=== PATIENT | female | born 1955 | race African-American/Black ===

== ENCOUNTER → 2017-02-18 | Outpatient (CLI) | payer MEDICARE ==
[~2017-02-18] MED LIST: ADVAIR 100/501 E1 INH; ANTIVERT/2525 M1 PO; CALTRATE 600 +1 TA1 PO; DICLOFENAC SOD75 MG PO; DITROPAN XL5 MG PO; FLEXERIL5 MG PO; HYDROCHLOROTHIA25 MG PO; HYDROCODONE BIT1 T11 PO; IBU800 MG PO; KCL PO; LIPITOR10 MG PO; LISINOPRIL40 MG PO; MASON NATURAL2000 IU PO; METFORMIN500 MG PO; MULTI VITAMINS1 TAB PO; PHENERGAN W/DM120 ML PO; POTASSIUM CHLO20 ME4 PO; PREDNICOT10 MG PO; PREDNICOT20 MG PO; PREDNISONE50 MG PO; PRILOSEC20 M1 PO; PROAIR HFA8.5 GM INH; ULTRACET 325 MG1 TA1 PO
== END | disposition home or self-care (01) ==
LOC: ORTHO 01:00
DX: M17.11 Unilateral primary osteoarthritis, right knee (principal)

== ENCOUNTER → 2017-12-15 | Outpatient (CLI) | payer MEDICARE ==
[2017-12-15 10:13] LABS: BUN 10 mg/dl (7-24); CHLORIDE 102 mmol/L (98-107); CHOLESTEROL 228 mg/dL (<200); CPK 290 U/L (26-192); CREATININE 1.05 mg/dL (0.55-1.02); HDL CHOLESTEROL 64 mg/dl (40-60); LDL CHOLESTEROL 137 mg/dL (9-159); POTASSIUM 3.6 mmol/L (3.5-5.1); SODIUM 141 mmol/L (136-145); TRIGLYCERIDES 136 mg/dl (<150); VLDL CHOLESTEROL 27 mg/dL (6-40)
[2017-12-16 12:05] LABS: CREATININE,URINE 127.9 mg/dL (Not Estab.); MICRO ALBUMIN/CRE RATIO 51.1 (0.0-30.0)
== END | disposition home or self-care (01) ==
LOC: LAB 09:11
PROVIDERS: Family Medicine
DX: Z12.31 Encounter for screening mammogram for malignant neoplasm of breast (principal); E78.00 Pure hypercholesterolemia, unspecified; E11.9 Type 2 diabetes mellitus without complications

== ENCOUNTER → 2018-01-14 | Outpatient (CLI) | payer MEDICARE | END | disposition home or self-care (01) | LOC: MAMMO 09:52 | DX: Z12.31 Encounter for screening mammogram for malignant neoplasm of breast (principal) ==

== ENCOUNTER → 2018-02-05 | Outpatient (CLI) | payer MEDICARE | END | disposition home or self-care (01) | LOC: ORTHO 00:35 | DX: M17.11 Unilateral primary osteoarthritis, right knee (principal) ==

== ENCOUNTER 2018-04-18 09:59 | Emergency (ER) | payer MEDICARE ==
[~2018-04-18] VITALS: Ht 167.6 cm; Wt 142.9 kg
[2018-04-18 10:32] LABS: BASO % 0.5 % (0.0-1.0); EOS # 0.1 10*3/uL (0.0-0.4); EOS % 1.5 % (1.0-4.0); HEMATOCRIT 40.8 % (37.0-47.0); HEMOGLOBIN 11.6 g/dl (12.0-16.0); LYMPH # 1.8 10*3/uL (1.3-4.4); LYMPH % 30.3 % (27.0-41.0); MEAN CELL VOLUME 79.1 fl (81.0-99.0); MEAN CORPUSCULAR HGB 22.5 pg (27.0-31.0); MEAN CORPUSCULAR HGB CONC 28.4 g/dl (33.0-37.0); MONO # 0.5 10*3/uL (0.1-1.0); MONO % 7.8 % (3.0-9.0); NEUT # 3.5 10*3/uL (2.3-7.9); NEUT % 59.4 % (47.0-73.0); PLATELET COUNT AUTOMATED 227 10*3/uL (130-400); RED BLOOD COUNT 5.16 10*6/uL (4.10-5.10); RED CELL DISTRI WIDTH 16.3 % (0-14.5); WHITE BLOOD COUNT 5.9 10*3/uL (4.8-10.8)
[2018-04-18 10:41] LABS: ACT PARTIAL THROMBO TIME 25.6 SECONDS (20.8-31.5); INTERNATIONAL NORM RATIO 0.9 (2.0-3.5)
[2018-04-18 10:48] LABS: ALBUMIN 2.8 gm/dl (3.1-4.5); ALKALINE PHOSPHATASE 95 U/L (45-117); BUN 4 mg/dl (7-24); CHLORIDE 101 mmol/L (98-107); CREATININE 0.94 mg/dL (0.55-1.02); LIPASE 49 U/L (73-393); POTASSIUM 3.9 mmol/L (3.5-5.1); SGOT/AST 18 IU/L (3-35); SGPT/ALT 20 U/L (12-78); SODIUM 141 mmol/L (136-145); TOTAL PROTEIN 7.2 gm/dL (6.4-8.2)
[2018-04-18 10:49] LABS: TROPONIN I < 0.015 ng/ml (<0.045)
[2018-04-18] MEDS ORDERED: LEVAQUIN750 M1 PO (11:43)
[2018-04-18] MEDS ORDERED: PREDNISONE10 MG PO (11:43)
== END 2018-04-18 12:00 | disposition left against medical advice (07) ==
LOC: ED 09:59
PROVIDERS: Emergency Medicine
DX: J96.01 Acute respiratory failure with hypoxia (principal); J44.1 Chronic obstructive pulmonary disease with (acute) exacerbation; I10 Essential (primary) hypertension; M19.90 Unspecified osteoarthritis, unspecified site; F17.200 Nicotine dependence, unspecified, uncomplicated; Z79.899 Other long term (current) drug therapy

== ENCOUNTER → 2018-08-16 | Outpatient (CLI) | payer MEDICARE ==
[~2018-08-16] MED LIST changes: +CEPHALEXIN500 M1 PO; +LEVAQUIN750 M1 PO; +PREDNISONE10 MG PO; +Zofran4 MG SL
[2018-08-16 08:31] LABS: BASO % 0.5 % (0.0-1.0); EOS # 0.1 10*3/uL (0.0-0.4); EOS % 1.1 % (1.0-4.0); HEMATOCRIT 41.5 % (37.0-47.0); HEMOGLOBIN 11.8 g/dl (12.0-16.0); LYMPH # 2.7 10*3/uL (1.3-4.4); LYMPH % 41.4 % (27.0-41.0); MEAN CELL VOLUME 77.9 fl (81.0-99.0); MEAN CORPUSCULAR HGB 22.1 pg (27.0-31.0); MEAN CORPUSCULAR HGB CONC 28.4 g/dl (33.0-37.0); MEAN PLATELET VOLUME 10.8 fl (9.6-12.3); MONO # 0.5 10*3/uL (0.1-1.0); MONO % 6.8 % (3.0-9.0); NEUT # 3.3 10*3/uL (2.3-7.9); NEUT % 49.9 % (47.0-73.0); PLATELET COUNT AUTOMATED 220 10*3/uL (130-400); RED BLOOD COUNT 5.33 10*6/uL (4.10-5.10); WHITE BLOOD COUNT 6.6 10*3/uL (4.8-10.8)
[2018-08-16 08:55] LABS: ALBUMIN 3.1 gm/dl (3.1-4.5); BUN 10 mg/dl (7-24); CHLORIDE 102 mmol/L (98-107); CHOLESTEROL 166 mg/dL (<200); CREATININE 1.03 mg/dL (0.55-1.02); POTASSIUM 4.1 mmol/L (3.5-5.1); SGOT/AST 11 IU/L (3-35); SGPT/ALT 17 U/L (12-78); SODIUM 142 mmol/L (136-145); TOTAL PROTEIN 7.4 gm/dL (6.4-8.2); TRIGLYCERIDES 137 mg/dl (<150); VLDL CHOLESTEROL 27 mg/dL (6-40)
[2018-08-16 09:04] LABS: ALKALINE PHOSPHATASE 79 U/L (45-117); HDL CHOLESTEROL 57 mg/dl (40-60); LDL CHOLESTEROL 82 mg/dL (9-159)
== END | disposition home or self-care (01) ==
LOC: LAB 08:03
PROVIDERS: Family Medicine
DX: E11.9 Type 2 diabetes mellitus without complications (principal); E78.00 Pure hypercholesterolemia, unspecified; G47.33 Obstructive sleep apnea (adult) (pediatric)

== ENCOUNTER 2018-09-10 09:56 | Emergency (ER) | payer MEDICARE ==
[~2018-09-10] VITALS: Ht 160 cm; Wt 158.8 kg
[~2018-09-10 09:56] MED LIST changes: -CEPHALEXIN500 M1 PO; -Zofran4 MG SL
[2018-09-10 10:29] LABS: BASO % 0.4 % (0.0-1.0); EOS # 0.1 10*3/uL (0.0-0.4); HEMATOCRIT 46.5 % (37.0-47.0); HEMOGLOBIN 13.8 g/dl (12.0-16.0); LYMPH # 3.2 10*3/uL (1.3-4.4); LYMPH % 45.1 % (27.0-41.0); MEAN CELL VOLUME 74.3 fl (81.0-99.0); MEAN CORPUSCULAR HGB CONC 29.7 g/dl (33.0-37.0); MEAN PLATELET VOLUME 11.1 fl (9.6-12.3); MONO # 0.7 10*3/uL (0.1-1.0); MONO % 9.6 % (3.0-9.0); NEUT # 3.1 10*3/uL (2.3-7.9); NEUT % 43.8 % (47.0-73.0); PLATELET COUNT AUTOMATED 227 10*3/uL (130-400); RED BLOOD COUNT 6.26 10*6/uL (4.10-5.10); RED CELL DISTRI WIDTH 17.6 % (0-14.5); WHITE BLOOD COUNT 7.2 10*3/uL (4.8-10.8)
[2018-09-10 10:41] LABS: ACT PARTIAL THROMBO TIME 23.7 SECONDS (20.8-31.5); INTERNATIONAL NORM RATIO 1.1 (2.0-3.5)
[2018-09-10 10:44] LABS: ALBUMIN 3.1 gm/dl (3.1-4.5); CREATININE 1.13 mg/dL (0.55-1.02); POTASSIUM 3.4 mmol/L (3.5-5.1); TOTAL PROTEIN 7.6 gm/dL (6.4-8.2)
[2018-09-10 10:55] LABS: BILIRUBIN 2+ (NEGATIVE); BLOOD 3+ (NEGATIVE); CLARITY CLOUDY (CLEAR); GLUCOSE NEGATIVE (NEGATIVE); KETONE TRACE (NEGATIVE); LEUKO ESTERASE TRACE (NEGATIVE); NITRITE POSITIVE (NEGATIVE)
[2018-09-10 10:59] LABS: COLOR BROWN (YELLOW)
[2018-09-10 11:03] LABS: EPITHELIAL CELLS 15-20
[2018-09-10 11:04] LABS: BACTERIA 2+; RBC 16-20 rbc/hpf (0-2)
[2018-09-10] MEDS ORDERED: Zofran4 MG SL (12:32)
[2018-09-10] MEDS ORDERED: CEPHALEXIN500 M1 PO (12:32)
== END 2018-09-10 13:20 | disposition home or self-care (01) ==
LOC: ED 09:56
PROVIDERS: Nurse Practitioner Family
DX: K52.9 Noninfective gastroenteritis and colitis, unspecified (principal); N39.0 Urinary tract infection, site not specified; I10 Essential (primary) hypertension; E11.9 Type 2 diabetes mellitus without complications; Z79.899 Other long term (current) drug therapy; Z79.84 Long term (current) use of oral hypoglycemic drugs

== ENCOUNTER → 2018-10-22 | Outpatient (CLI) | payer MEDICARE ==
[~2018-10-22] MED LIST changes: +CEPHALEXIN500 M1 PO; +DOXYCYCLINE100 M3 PO; +Zofran4 MG SL
== END | disposition home or self-care (01) ==
LOC: ORTHO 04:21
DX: M17.0 Bilateral primary osteoarthritis of knee (principal)

== ENCOUNTER 2018-12-02 14:28 | Emergency (ER) | payer MEDICARE ==
[~2018-12-02] VITALS: Ht 165.1 cm; Wt 139.7 kg
[~2018-12-02 14:28] MED LIST changes: -ADVAIR 100/501 E1 INH; +ADVAIR 250/501 EA INH; -DOXYCYCLINE100 M3 PO; +GLUCOPHAGE1000 MG PO; -LIPITOR10 MG PO; +LIPITOR80 MG PO; -METFORMIN500 MG PO; +OMEPRAZOLE D/R20 MG PO; -PRILOSEC20 M1 PO
[2018-12-02] MEDS ORDERED: DOXYCYCLINE100 M3 PO (15:07)
[2019-01-07] MEDS ORDERED: INCRUSE ELLI62.5 MCG INH (11:02)
[2019-01-07] MEDS ORDERED: POTASSIUM CHLO20 ME3 PO (11:06)
== END 2018-12-02 15:30 | disposition home or self-care (01) ==
LOC: ED 14:28
DX: L02.411 Cutaneous abscess of right axilla (principal); E11.9 Type 2 diabetes mellitus without complications; I10 Essential (primary) hypertension; E78.5 Hyperlipidemia, unspecified; M19.90 Unspecified osteoarthritis, unspecified site; F17.200 Nicotine dependence, unspecified, uncomplicated; Z79.899 Other long term (current) drug therapy

== ENCOUNTER 2019-02-09 09:11 | Emergency (ER) | payer MEDICARE ==
[~2019-02-09] VITALS: Ht 160 cm; Wt 139.7 kg
[~2019-02-09 09:11] MED LIST changes: +DOXYCYCLINE100 M3 PO; +INCRUSE ELLI62.5 MCG INH; +POTASSIUM CHLO20 ME3 PO
[2019-02-09 10:03] LABS: BASO % 0.2 % (0.0-1.0); EOS # 0.3 10*3/uL (0.0-0.4); EOS % 3.9 % (1.0-4.0); HEMATOCRIT 40.7 % (37.0-47.0); HEMOGLOBIN 11.7 g/dl (12.0-16.0); LYMPH # 2.7 10*3/uL (1.3-4.4); LYMPH % 31.6 % (27.0-41.0); MEAN CELL VOLUME 78.1 fl (81.0-99.0); MEAN CORPUSCULAR HGB 22.5 pg (27.0-31.0); MEAN CORPUSCULAR HGB CONC 28.7 g/dl (33.0-37.0); MEAN PLATELET VOLUME 11.1 fl (9.6-12.3); MONO # 0.7 10*3/uL (0.1-1.0); MONO % 7.7 % (3.0-9.0); NEUT # 4.8 10*3/uL (2.3-7.9); NEUT % 56.4 % (47.0-73.0); PLATELET COUNT AUTOMATED 228 10*3/uL (130-400); RED BLOOD COUNT 5.21 10*6/uL (4.10-5.10); RED CELL DISTRI WIDTH 17.7 % (0-14.5); WHITE BLOOD COUNT 8.4 10*3/uL (4.8-10.8)
[2019-02-09 10:18] LABS: ALBUMIN 2.9 gm/dl (3.1-4.5); ALKALINE PHOSPHATASE 94 U/L (45-117); BUN 7 mg/dl (7-24); CHLORIDE 104 mmol/L (98-107); CREATININE 0.93 mg/dL (0.55-1.02); LIPASE 40 U/L (73-393); POTASSIUM 3.7 mmol/L (3.5-5.1); SGOT/AST 18 IU/L (3-35); SGPT/ALT 19 U/L (12-78); SODIUM 142 mmol/L (136-145); TOTAL PROTEIN 7.3 gm/dL (6.4-8.2)
[2019-02-09] MEDS ORDERED: DOXYCYCLINE100 M3 PO (10:53)
[2019-02-09 11:53] LABS: BILIRUBIN NEGATIVE (NEGATIVE); BLOOD 1+ (NEGATIVE); CLARITY SL CLOUDY (CLEAR); COLOR YELLOW (YELLOW); GLUCOSE NEGATIVE (NEGATIVE); KETONE NEGATIVE (NEGATIVE); LEUKO ESTERASE NEGATIVE (NEGATIVE); NITRITE NEGATIVE (NEGATIVE); UROBILINOGEN 0.2 E.U./dl (0.2-1.0)
[2019-02-09 12:30] LABS: EPITHELIAL CELLS 20-30; RBC 16-20 rbc/hpf (0-2)
[2019-02-09 12:31] LABS: BACTERIA TRACE
== END 2019-02-09 12:00 | disposition home or self-care (01) ==
LOC: ED 09:11
PROVIDERS: Physician Assistant
DX: L03.114 Cellulitis of left upper limb (principal); F17.200 Nicotine dependence, unspecified, uncomplicated; Z79.899 Other long term (current) drug therapy

== ENCOUNTER → 2019-06-28 | Day surgery (SDC) | payer MEDICARE ==
[~2019-06-28] VITALS: Ht 167.6 cm; Wt 134.7 kg
[~2019-06-28] MED LIST changes: +Motrin,Rufen800 MG PO; +NORCO 5-325 TA1 EACH PO
[2019-06-28 08:43] VITALS: BP 154/95
[2019-06-28 12:53] VITALS: BP 151/75
[2019-06-28 13:13] VITALS: BP 169/100
[2019-06-28 13:25] VITALS: BP 166/97
[2019-06-28 13:40] VITALS: BP 138/89
== END | disposition home or self-care (01) ==
LOC: SDC 06-20 12:30
DX: N95.0 Postmenopausal bleeding (principal); N88.2 Stricture and stenosis of cervix uteri; D25.9 Leiomyoma of uterus, unspecified; J44.9 Chronic obstructive pulmonary disease, unspecified; I10 Essential (primary) hypertension; K58.9 Irritable bowel syndrome, unspecified; M79.7 Fibromyalgia; E66.9 Obesity, unspecified; M06.9 Rheumatoid arthritis, unspecified; E11.9 Type 2 diabetes mellitus without complications; Z79.899 Other long term (current) drug therapy; K27.9 Peptic ulcer, site unspecified, unspecified as acute or chronic, without hemorrhage or perforation; F32.9 Major depressive disorder, single episode, unspecified; Z90.89 Acquired absence of other organs; Z98.890 Other specified postprocedural states; F17.210 Nicotine dependence, cigarettes, uncomplicated; Z98.51 Tubal ligation status; K21.9 Gastro-esophageal reflux disease without esophagitis

== ENCOUNTER 2019-07-07 10:49 | Emergency (ER) | payer MEDICARE ==
[~2019-07-07] VITALS: Ht 167.6 cm; Wt 133.4 kg
[~2019-07-07 10:49] MED LIST changes: +HYDR25T PO; -HYDROCHLOROTHIA25 MG PO; -OMEPRAZOLE D/R20 MG PO; +OMEPRAZOLE20 M2 PO
[2019-07-07 11:42] LABS: BASO % 0.5 % (0.0-1.0); EOS # 0.1 10*3/uL (0.0-0.4); EOS % 0.9 % (1.0-4.0); HEMATOCRIT 43.7 % (37.0-47.0); HEMOGLOBIN 12.3 g/dl (12.0-16.0); LYMPH # 2.1 10*3/uL (1.3-4.4); LYMPH % 27.5 % (27.0-41.0); MEAN CELL VOLUME 79.7 fl (81.0-99.0); MEAN CORPUSCULAR HGB 22.4 pg (27.0-31.0); MEAN CORPUSCULAR HGB CONC 28.1 g/dl (33.0-37.0); MEAN PLATELET VOLUME 11.6 fl (9.6-12.3); MONO # 0.7 10*3/uL (0.1-1.0); MONO % 8.9 % (3.0-9.0); NEUT # 4.8 10*3/uL (2.3-7.9); NEUT % 61.7 % (47.0-73.0); PLATELET COUNT AUTOMATED 229 10*3/uL (130-400); RED BLOOD COUNT 5.48 10*6/uL (4.10-5.10); RED CELL DISTRI WIDTH 17.7 % (0-14.5); WHITE BLOOD COUNT 7.8 10*3/uL (4.8-10.8)
[2019-07-07 11:50] LABS: ALBUMIN 2.9 gm/dl (3.1-4.5); ALKALINE PHOSPHATASE 95 U/L (45-117); BUN 7 mg/dl (7-24); CHLORIDE 100 mmol/L (98-107); CREATININE 0.94 mg/dL (0.55-1.02); POTASSIUM 3.7 mmol/L (3.5-5.1); SGOT/AST 20 IU/L (3-35); SGPT/ALT 20 U/L (12-78); SODIUM 137 mmol/L (136-145); TOTAL PROTEIN 7.5 gm/dL (6.4-8.2)
[2019-07-07] MEDS ORDERED: LEVAQUIN750 M1 PO (14:03)
== END 2019-07-07 14:06 | disposition home or self-care (01) ==
LOC: ED 10:49
PROVIDERS: Emergency Medicine
DX: J18.9 Pneumonia, unspecified organism (principal); K21.9 Gastro-esophageal reflux disease without esophagitis; E11.9 Type 2 diabetes mellitus without complications; J44.9 Chronic obstructive pulmonary disease, unspecified; E78.5 Hyperlipidemia, unspecified; E66.01 Morbid (severe) obesity due to excess calories; I11.0 Hypertensive heart disease with heart failure; M19.90 Unspecified osteoarthritis, unspecified site; I50.9 Heart failure, unspecified; F17.210 Nicotine dependence, cigarettes, uncomplicated; Z79.899 Other long term (current) drug therapy

== ENCOUNTER → 2019-07-18 | Outpatient (CLI) | payer MEDICARE ==
[~2019-07-18] MED LIST changes: +DILTIAZEM 24HR120 MG PO; +MUCINEX ER600 MG PO; +POLYTRIM 1000010 M1 OPH
[2019-07-18 11:26] LABS: IRON 295 ug/dL (50-170); TOTAL IRON BINDING CAPACITY 347 ug/dl (250-450)
== END | disposition home or self-care (01) ==
LOC: LAB 10:21
PROVIDERS: Student in an Organized Health Care Education/Training Program
DX: J18.1 Lobar pneumonia, unspecified organism (principal); R71.8 Other abnormality of red blood cells; R42 Dizziness and giddiness

== ENCOUNTER 2019-07-19 08:30 | Inpatient (IN) | payer MEDICARE ==
[~2019-07-19] VITALS: Ht 167.6 cm; Wt 130.0 kg
[2019-07-19] VITALS (11 sets, daily range): BP systolic 98–132; BP diastolic 60–87
[~2019-07-19 08:30] MED LIST changes: -DILTIAZEM 24HR120 MG PO; -MUCINEX ER600 MG PO; -POLYTRIM 1000010 M1 OPH
[2019-07-19 09:03] LABS: HEMATOCRIT 25.4 % (37.0-47.0); HEMOGLOBIN 7.9 g/dl (12.0-16.0); MEAN CELL VOLUME 91.4 fl (81.0-99.0); MEAN CORPUSCULAR HGB 28.4 pg (27.0-31.0); MEAN CORPUSCULAR HGB CONC 31.1 g/dl (33.0-37.0); MEAN PLATELET VOLUME 11.8 fl (9.6-12.3); NUCLEATED RED BLOOD CELL 0.8 10*3/uL (0.0-0.0); NUCLEATED RED BLOOD CELL 6.7 % (0.0-0.0); PLATELET COUNT AUTOMATED 299 10*3/uL (130-400); RED BLOOD COUNT 2.78 10*6/uL (4.10-5.10); RED CELL DISTRI WIDTH 26.3 % (0-14.5); WHITE BLOOD COUNT 11.2 10*3/uL (4.8-10.8)
[2019-07-19 09:17] LABS: ACT PARTIAL THROMBO TIME 24.2 SECONDS (20.0-32.1)
--- NOTE | 2019-07-19 09:18 | NUR ---
FAMILY AT BEDSIDE, PT OFFERS NO NEW COMLAINTS.
[2019-07-19 09:22] LABS: ALBUMIN 3.1 gm/dl (3.1-4.5); CREATININE 1.57 mg/dL (0.55-1.02); POTASSIUM 3.6 mmol/L (3.5-5.1); TOTAL PROTEIN 7.1 gm/dL (6.4-8.2)
[2019-07-19 09:23] LABS: TROPONIN I 0.021 ng/ml (<0.045)
--- NOTE | 2019-07-19 09:27 | NUR ---
[place] [address] DR FRANK NOTIFIED
[2019-07-19 09:35] LABS: PLATELET SUFFICIENCY NORMAL (NORMAL); POLYCHROMASIA SLIGHT; TOTAL CELLS COUNTED 100 #CELLS
--- NOTE | 2019-07-19 10:36 | NUR ---
PT RESTING SOUNDLY ON RT SIDE, POX 90%, PLACED ON NC @ 2LPM. POX 97% AT THSI TIME.
[2019-07-19 11:24] LABS: HEMATOCRIT 25.9 % (37.0-47.0); HEMOGLOBIN 7.8 g/dl (12.0-16.0)
--- NOTE | 2019-07-19 11:30 | NUR ---
UP TO BEDSIDE COMMODE, TOLERATED FAIR, C/O DIZZYNESS.
[2019-07-19 11:45] LABS: BILIRUBIN 1+ (NEGATIVE); BLOOD 1+ (NEGATIVE); CLARITY CLOUDY (CLEAR); COLOR YELLOW (YELLOW); GLUCOSE NEGATIVE (NEGATIVE); KETONE NEGATIVE (NEGATIVE); LEUKO ESTERASE NEGATIVE (NEGATIVE); NITRITE NEGATIVE (NEGATIVE); PH 5.5 (5.0-9.0); SPECIFIC GRAVITY 1.025 (1.005-1.030)
[2019-07-19 12:02] LABS: BACTERIA 2+; CALCIUM OXALATE CRYSTALS 1+
[2019-07-19 12:03] LABS: EPITHELIAL CELLS 15-20
--- NOTE | 2019-07-19 12:06 | NUR ---
A 63yr old female, admitted to ICCU, under the services of MYRIAM Girard DO with a diagnosis of Anemia, new onset Atrial Fib, pneumonitis. Chief complaint is weakness, cough, fast heart. Patient arrived via stretcher from ER. Monitor applied. Initial assessment completed. Vital signs taken and recorded. See assessment for past medical history, medications and allergies. Patient and/or family oriented to unit. [facility] ICCU visitation policy reviewed. Clothing/patient valuable form completed. KAREEM GAXIOLA
--- NOTE | 2019-07-19 13:12 | NUR ---
DR SORIA NOTIFIED OF CONSULTATION.
--- NOTE | 2019-07-19 14:37 | NUR ---
PT HAS BEEN ACCOMPANIED TO AND FROM RADIOLOGY FOR CT ABDOMEN.
--- NOTE | 2019-07-19 15:40 | NUR ---
DR SOLIS HAS VISITED. CARDIOLOGY RESIDENTS IN TO SEE PT.
--- NOTE | 2019-07-19 16:44 | NUR ---
MEDS VERIFIED WITH PATIENT. I THEN CALLED [facility] WHO CONFIRMED THE MEDS BUT SAID MANY OF THEM HADN'T BEEN FILLED SINCE NOVEMBER.
--- NOTE | 2019-07-19 16:47 | NUR ---
DR THOMPSON NOTIFIED MED REC COMPLETE.
--- NOTE | 2019-07-19 17:03 | NUR ---
MONITOR SHOWS CONVERSION TO NSR WITH PAC'S. ORDERED STAT EKG FOR DOCUMENTATION.
--- NOTE | 2019-07-19 17:22 | NUR ---
[facility] CARDIOLOGY DOCTOR LINK TRAINER MAINTENANCE MAN (DR SANTANA) PAGED, UPDATED ON RHYTHM CHANGE AND ORDERS RECEIVED.
--- NOTE | 2019-07-19 17:37 | NUR ---
ORAL CARDIZEM CD 120MG GIVEN. CARDIZEM DRIP DECREASED BY 50% TO 5MG/HR. WILL D/C ONE HOUR AFTER ORAL CARDIZEM IN.
--- NOTE | 2019-07-19 17:48 | NUR ---
DR ENGLISH HAS VISITED, UPDATED HIM ON MEDS GIVEN AND TITRATION OF CARDIZEM DRIP.
--- NOTE | 2019-07-19 22:58 | NUR ---
PATIENT RESTING COMFORTABLY IN HER BED AT THIS TIME. NO S/S OF DISTRESS. CALL LIGHT IN REACH.
[2019-07-20] VITALS (20 sets, daily range): BP systolic 100–129; BP diastolic 49–98
--- NOTE | 2019-07-20 03:11 | NUR ---
PATIENT STARTED ON BLOOD TRANSFUSION. TRANSFUSION REACTION SYMPTOMS DISCUSSED WITH PATIENT. PATIENT STATES SHE UNDERSTANDS THE S/S OF TRANSFUSION REACTION. PATIENT'S BASELINE VITALS TAKEN. VITALS STABLE. BLOOD PRODUCT VERIFIED WITH GAGE GRISSOM RN. BLOOD PRODUCT RUN THROUGH BLOOD WARMER. VERIFIED PROPER WORKING ORDER OF BLOOD WARMER. FLUID LEVEL CHECKED. ABOVE MINIMUM LEVEL. CALL LIGHT PLACED WITHIN REACH. NO S/S OF DISTRESS. IV SITE CHECKED FOR INFILTRATE AND LEAKAGE.
--- NOTE | 2019-07-20 06:33 | NUR ---
FIRST UNIT OF BLOOD COMPLETED. CALLED LAB TO LET THEM KNOW THEY CAN DRAW LABS AT 0730.
--- NOTE | 2019-07-20 07:19 | NUR ---
Shift chart check completed.24 HR chart check completed.
[2019-07-20 08:03] LABS: HEMATOCRIT 24.2 % (37.0-47.0); HEMOGLOBIN 7.9 g/dl (12.0-16.0); MEAN CELL VOLUME 91.3 fl (81.0-99.0); MEAN CORPUSCULAR HGB 29.8 pg (27.0-31.0); MEAN CORPUSCULAR HGB CONC 32.6 g/dl (33.0-37.0); MEAN PLATELET VOLUME 11.8 fl (9.6-12.3); NUCLEATED RED BLOOD CELL 0.2 10*3/uL (0.0-0.0); NUCLEATED RED BLOOD CELL 1.7 % (0.0-0.0); RED BLOOD COUNT 2.65 10*6/uL (4.10-5.10); RED CELL DISTRI WIDTH 25.5 % (0-14.5)
[2019-07-20 08:06] LABS: PLATELET COUNT AUTOMATED 204 10*3/uL (130-400)
[2019-07-20 08:11] LABS: PLATELET SUFFICIENCY NORMAL (NORMAL); POLYCHROMASIA SLIGHT; TARGET CELLS FEW; TOTAL CELLS COUNTED 100 #CELLS
[2019-07-20 08:12] LABS: SCHISTOCYTES FEW
[2019-07-20 08:23] LABS: ALBUMIN 2.8 gm/dl (3.1-4.5); BUN 22 mg/dl (7-24); CHLORIDE 105 mmol/L (98-107); CHOLESTEROL 189 mg/dL (<200); CREATININE 1.01 mg/dL (0.55-1.02); PHOSPHOROUS 2.8 mg/dL (2.5-4.9); POTASSIUM 3.9 mmol/L (3.5-5.1); SGOT/AST 39 IU/L (3-35); SGPT/ALT 48 U/L (12-78); SODIUM 140 mmol/L (136-145); TOTAL PROTEIN 6.7 gm/dL (6.4-8.2); TRIGLYCERIDES 113 mg/dl (<150); VLDL CHOLESTEROL 23 mg/dL (6-40)
[2019-07-20 08:30] LABS: ALKALINE PHOSPHATASE 83 U/L (45-117); FREE T4 1.32 ng/dl (0.76-1.46); HDL CHOLESTEROL 55 mg/dl (40-60); LDL CHOLESTEROL 111 mg/dL (9-159); THYROID STIM HORMONE (HS) 0.465 uIU/ml (0.358-4.75)
[2019-07-20 08:43] LABS: VITAMIN D, 25-HYDROXY 17.7 ng/mL (30-100)
--- NOTE | 2019-07-20 08:45 | NUR ---
ON ASSESSMENT PATIENT IS ALERT AND ORIENTED, IN NO ACUTE DISTRESS. IV FLUIDS AT 80/HR, AWAITING RESULTS OF CBC FOR FURTHER TRANSFUSIONS. HER AM DOSE OF LEVAQUIN STARTED EARLY DUE TO ONLY ONE IV SITE. PT IS ON ROOM AIR. SHE DENIES PAIN OR SHORTNESS OF BREATH. SEE ALL APPROPRIATE INTERVENTIONS.
--- NOTE | 2019-07-20 10:45 | NUR ---
Patient identified by arm band. Vital signs recorded. Blood unit number [id number] verified by 2 R.N.'s, myself and Chio Dawn, via electronic documentation I.V. site satisfactory. Unit #2 started at a KVO rate with Normal Saline, using blood warmer for cold antibodies. Patient in constant attendance for first 15minutes of transfusion. KAREEM GAXIOLA L
--- NOTE | 2019-07-20 11:06 | NUR ---
Occupational therapy orders received and chart reviewed. Per nursing, patient was receiving a blood transfusion upon OT arrival, 11:06 am on 07/20/19. Will follow up with patient when appropriate for OT evaluation. Thank you. Makeda Jacques OTR/L
--- NOTE | 2019-07-20 12:24 | NUR ---
TRANSFUSION CONTINUES WITHOUT SIGNS OF REACTION. ECHO BEING DONE AT THE BEDSIDE.
--- NOTE | 2019-07-20 12:49 | NUR ---
Slimer in to talk to patient. Patient states lives at HOME with GRAND DAUGHTER AND GRAND SON. There are FEW steps in the home. Physician: JULIEN MENDOZA Pharmacy: [facility] Home health services: NONE Patient's level of ADLs: INDEPENDENT Patient has working utilities: YES DME: NONE Follow-up physician's appointment after d/c: WILL BE MADE BY HOSPITALIST NURSE DIRECTOR ON DISCHARGE Does patient want to access PORTAL?: NO Discharge plan PT LIVES AT HOME WITH HER GRANDCHILDREN. STATES SHE HAS NO NEEDS ON DISCHARGE AT THIS TIME. WILL RETURN HOME ON DISCHARGE. WILL CONTINUE TO FOLLOW. WILL HAVE A RIDE HOME PER PT.. BJ LOPEZ
--- NOTE | 2019-07-20 13:28 | NUR ---
TRANSFUSION COMPLETE, SALINE INFUSING. NO APPARENT REACTION.
--- NOTE | 2019-07-20 13:56 | NUR ---
TRANSFUSION COMPLETE PER [employer] PT TOLERATED WELL.
--- NOTE | 2019-07-20 14:55 | NUR ---
I OFFERED TO GIVE PATIENT A BATH. SHE DECLINED AT THIS TIME, SAYING SHE'S EXPECTING VISITORS.
[2019-07-20 18:03] LABS: HEMATOCRIT 28.4 % (37.0-47.0); HEMOGLOBIN 8.7 g/dl (12.0-16.0)
[2019-07-21] VITALS: BP 117/67
[2019-07-21 04:00] VITALS: BP 124/76
[2019-07-21 05:33] LABS: ALBUMIN 3.1 gm/dl (3.1-4.5); CREATININE 1.15 mg/dL (0.55-1.02); POTASSIUM 4.4 mmol/L (3.5-5.1); TOTAL PROTEIN 6.9 gm/dL (6.4-8.2)
--- NOTE | 2019-07-21 05:55 | NUR ---
PATIENT RECEIVED TYLENOL FOR PAIN IN KNEES D/T ARTHRITIS. RATED 5/10.
[2019-07-21 06:21] LABS: HEMATOCRIT 27.1 % (37.0-47.0); HEMOGLOBIN 8.9 g/dl (12.0-16.0); MEAN CELL VOLUME 91.9 fl (81.0-99.0); MEAN CORPUSCULAR HGB 30.2 pg (27.0-31.0); MEAN CORPUSCULAR HGB CONC 32.8 g/dl (33.0-37.0); MEAN PLATELET VOLUME 12.3 fl (9.6-12.3); NUCLEATED RED BLOOD CELL 0.1 10*3/uL (0.0-0.0); PLATELET COUNT AUTOMATED 202 10*3/uL (130-400); RED BLOOD COUNT 2.95 10*6/uL (4.10-5.10); RED CELL DISTRI WIDTH 24.8 % (0-14.5); WHITE BLOOD COUNT 9.7 10*3/uL (4.8-10.8)
[2019-07-21 07:05] LABS: PLATELET SUFFICIENCY NORMAL (NORMAL); POLYCHROMASIA SLIGHT; ROULEAUX SLIGHT; TOTAL CELLS COUNTED 100 #CELLS
[2019-07-21 07:06] LABS: SCHISTOCYTES FEW
[2019-07-21 08:00] VITALS: BP 137/94
--- NOTE | 2019-07-21 09:02 | NUR ---
ROSA ELENA provided the patient with DPOA-HC papers. Will stop back in to have them Witnessed and signed. -ROSA ELENA Tran
--- NOTE | 2019-07-21 09:05 | NUR ---
Awake and alert, Self AM care in bathroom. Dr. Faith in to [facility]. Talk of transfer to tele.
--- NOTE | 2019-07-21 10:26 | NUR ---
IV leaking at site. dc'd and re-started to RW . Family in to visit. Requested paper work for [facility]. Recieved from . DR. Hopkins and Marcell in to [facility]. Order for transfer to tele recieved.
--- NOTE | 2019-07-21 10:44 | NUR ---
PHYSICAL THERAPY Physical therapy evaluation completed, ICC[facility]. Details and evaluation to follow. Moderate complexity determined after evaluation/chart review, [address]. PT to work on endurance, strength, gait, safety, transfers, balance. Recommending Home health at discharge. Thank you Jie Matias, PT, DPT
[2019-07-21 12:00] VITALS: BP 149/107
--- NOTE | 2019-07-21 12:52 | NUR ---
awake and alert. Sitting up at bedside. Taking meals well . Family in to visit. No c/o.
--- NOTE | 2019-07-21 13:22 | NUR ---
PT CONTINUES TO DENY NEEDS AT THIS TIME. WILL CONTINUE TO FOLLOW.
--- NOTE | 2019-07-21 14:46 | NUR ---
Transferred to [facility] via bed with belongings. Report to Brenda VEGAS.
[2019-07-21 16:00] VITALS: BP 151/87
--- NOTE | 2019-07-21 16:30 | NUR ---
PT RESTING IN BED. NO DISTRESS NOTED. WILL MONITOR FAMILY AT BEDSIDE
[2019-07-21 20:00] VITALS: BP 147/88
[2019-07-22] VITALS: BP 143/78
--- NOTE | 2019-07-22 00:12 | NUR ---
patient medicated with prn tylenol as ordered for c/o arthritis pain
[2019-07-22 06:14] LABS: CREATININE 1.13 mg/dL (0.55-1.02); POTASSIUM 4.4 mmol/L (3.5-5.1)
[2019-07-22 06:23] LABS: HEMATOCRIT 26.9 % (37.0-47.0); HEMOGLOBIN 8.7 g/dl (12.0-16.0); MEAN CELL VOLUME 91.2 fl (81.0-99.0); MEAN CORPUSCULAR HGB 29.5 pg (27.0-31.0); MEAN CORPUSCULAR HGB CONC 32.3 g/dl (33.0-37.0); MEAN PLATELET VOLUME 12.1 fl (9.6-12.3); NUCLEATED RED BLOOD CELL 0.1 10*3/uL (0.0-0.0); NUCLEATED RED BLOOD CELL 0.6 % (0.0-0.0); PLATELET COUNT AUTOMATED 185 10*3/uL (130-400); RED BLOOD COUNT 2.95 10*6/uL (4.10-5.10); RED CELL DISTRI WIDTH 24.8 % (0-14.5); WHITE BLOOD COUNT 8.9 10*3/uL (4.8-10.8)
[2019-07-22 08:00] VITALS: BP 144/86
[2019-07-22 08:00] LABS: OVALOCYTES FEW; PLATELET SUFFICIENCY NORMAL (NORMAL); POLYCHROMASIA SLIGHT; ROULEAUX SLIGHT; SCHISTOCYTES FEW; TOTAL CELLS COUNTED 100 #CELLS
[2019-07-22 08:01] LABS: STOMATOCYTE FEW
--- NOTE | 2019-07-22 09:37 | NUR ---
PT RESTING IN BED/ NO DISTRESS NOTED. WILL MONITOR
--- NOTE | 2019-07-22 09:41 | NUR ---
PHYSICAL THERAPY Patient seen this am 1;1 for therapy visit and was sitting up on EOB upon therapist arrival. Patient indentified by name / and reports chronic B knee stiffness secondary to history of Arthritis. Patient instructed on / performed seated B LE therex, all planes, 2 x 10 reps each to increase LE strength. Patient was very pleasant this morning and remained seated EOB with call light, tray table and telephone. Will continue per POC as tolerated, total treatment time 14 minutes. Roberto Brian, ART DEPARTMENT HEAD
--- NOTE | 2019-07-22 11:14 | NUR ---
CASE MANAGEMNT IN TO TALK WITH PT ABOUT HOME HEALTH ON DISCHARGE. PT IS AGREEABLE AND WOULD LIKE [facility].
[2019-07-22 12:00] VITALS: BP 154/74
[2019-07-22] MEDS ORDERED: MUCINEX ER600 MG PO (13:33)
[2019-07-22] MEDS ORDERED: PREDNISONE10 MG PO (13:33)
[2019-07-22] MEDS ORDERED: DILTIAZEM 24HR120 MG PO (13:33)
--- NOTE | 2019-07-22 14:04 | NUR ---
Nutritional Support Services Note: Pt evaluated for malnutrition. Appetite is good for meals, albumin is wnl. 1800cal diet as ordered. Ht.5'6 Wt. 287#. See no signs of malnutrition at this time. Will follow. Cari Enriquez Rdn Ld
--- NOTE | 2019-07-22 14:07 | NUR ---
REFERRAL AND FACE TO FACE FORM FAXED TO [facility], [facility].
--- NOTE | 2019-07-22 15:04 | NUR ---
Discharge instructions reviewed with patient/family. Patient receptive and verbalizes understanding. Follow-up care arranged. Written instructions given to patient/family. STACI GALAN
--- NOTE | 2019-07-22 16:30 | NUR ---
PHYSICAL THERAPY CO-SIGN I approve of the Physical Therapy notes written above. ISMAEL LOCKHART PT,DPT
== END 2019-07-22 15:04 | disposition home health service (06) | DRG 871 ==
LOC: ED 08:30 → EDHOLD 11:14 → ICCU 11:14 → 4E 07-21 14:17
PROVIDERS: Emergency Medicine; Internal Medicine; ADMIT Internal Medicine
PROC: 30233N1 Transfusion of Nonautologous Red Blood Cells into Peripheral Vein, Percutaneous Approach (ICD-10-PCS; principal; 2019-07-20)
DX: A41.9 Sepsis, unspecified organism (principal); J18.9 Pneumonia, unspecified organism; N17.0 Acute kidney failure with tubular necrosis; J44.0 Chronic obstructive pulmonary disease with (acute) lower respiratory infection; J44.1 Chronic obstructive pulmonary disease with (acute) exacerbation; E44.0 Moderate protein-calorie malnutrition; Z68.42 Body mass index [BMI] 45.0-49.9, adult; J98.11 Atelectasis; E87.2 Acidosis; R65.20 Severe sepsis without septic shock; K21.9 Gastro-esophageal reflux disease without esophagitis; I48.91 Unspecified atrial fibrillation; J20.9 Acute bronchitis, unspecified; F17.210 Nicotine dependence, cigarettes, uncomplicated; E80.6 Other disorders of bilirubin metabolism; R74.0 Nonspecific elevation of levels of transaminase and lactic acid dehydrogenase [LDH]; D64.9 Anemia, unspecified; E11.65 Type 2 diabetes mellitus with hyperglycemia; R31.1 Benign essential microscopic hematuria; R82.2 Biliuria; E55.9 Vitamin D deficiency, unspecified; D63.8 Anemia in other chronic diseases classified elsewhere; N32.81 Overactive bladder; E78.5 Hyperlipidemia, unspecified; I10 Essential (primary) hypertension; K58.9 Irritable bowel syndrome, unspecified; E66.01 Morbid (severe) obesity due to excess calories; M17.0 Bilateral primary osteoarthritis of knee; Z79.84 Long term (current) use of oral hypoglycemic drugs; Z98.51 Tubal ligation status; Z82.49 Family history of ischemic heart disease and other diseases of the circulatory system; Z71.6 Tobacco abuse counseling

== ENCOUNTER → 2019-07-29 | Outpatient (CLI) | payer MEDICARE ==
[~2019-07-29] MED LIST changes: +DILTIAZEM 24HR120 MG PO; +MUCINEX ER600 MG PO; +POLYTRIM 1000010 M1 OPH
[2019-07-29 09:02] LABS: BASO % 0.1 % (0.0-1.0); EOS % 0.2 % (1.0-4.0); HEMATOCRIT 36.4 % (37.0-47.0); HEMOGLOBIN 10.4 g/dl (12.0-16.0); LYMPH # 4.4 10*3/uL (1.3-4.4); LYMPH % 43.1 % (27.0-41.0); MEAN CELL VOLUME 89.7 fl (81.0-99.0); MEAN CORPUSCULAR HGB 25.6 pg (27.0-31.0); MEAN CORPUSCULAR HGB CONC 28.6 g/dl (33.0-37.0); MONO # 0.7 10*3/uL (0.1-1.0); MONO % 7.2 % (3.0-9.0); NEUT % 48.7 % (47.0-73.0); PLATELET COUNT AUTOMATED 192 10*3/uL (130-400); RED BLOOD COUNT 4.06 10*6/uL (4.10-5.10); RED CELL DISTRI WIDTH 21.2 % (0-14.5); WHITE BLOOD COUNT 10.2 10*3/uL (4.8-10.8)
[2019-07-29 09:37] LABS: CHLORIDE 105 mmol/L (98-107); POTASSIUM 3.2 mmol/L (3.5-5.1); SODIUM 144 mmol/L (136-145)
[2019-07-29 09:46] LABS: ALBUMIN 3.1 gm/dl (3.1-4.5); ALKALINE PHOSPHATASE 68 U/L (45-117); BUN 13 mg/dl (7-24); CREATININE 0.96 mg/dL (0.55-1.02); IRON 83 ug/dL (50-170); SGOT/AST 9 IU/L (3-35); SGPT/ALT 27 U/L (12-78); TOTAL IRON BINDING CAPACITY 300 ug/dl (250-450); TOTAL PROTEIN 6.6 gm/dL (6.4-8.2)
== END | disposition home or self-care (01) ==
LOC: LAB 08:00
PROVIDERS: Student in an Organized Health Care Education/Training Program
DX: I48.0 Paroxysmal atrial fibrillation (principal); E64.9 Sequelae of unspecified nutritional deficiency; E83.19 Other disorders of iron metabolism; R79.89 Other specified abnormal findings of blood chemistry

== ENCOUNTER 2019-07-31 07:56 | Emergency (ER) | payer MEDICARE ==
[~2019-07-31] VITALS: Ht 167.6 cm; Wt 133.4 kg
[~2019-07-31 07:56] MED LIST changes: -POLYTRIM 1000010 M1 OPH
[2019-07-31] MEDS ORDERED: POLYTRIM 1000010 M1 OPH (08:40)
== END 2019-07-31 08:40 | disposition home or self-care (01) ==
LOC: ED 07:56
DX: H10.9 Unspecified conjunctivitis (principal); I48.91 Unspecified atrial fibrillation; F17.210 Nicotine dependence, cigarettes, uncomplicated; J44.9 Chronic obstructive pulmonary disease, unspecified; E11.9 Type 2 diabetes mellitus without complications; K21.9 Gastro-esophageal reflux disease without esophagitis; E78.5 Hyperlipidemia, unspecified; I10 Essential (primary) hypertension; E66.01 Morbid (severe) obesity due to excess calories; Z79.899 Other long term (current) drug therapy

== ENCOUNTER → 2019-08-26 | Day surgery (SDC) | payer MEDICARE ==
[~2019-08-26] VITALS: Ht 167.6 cm; Wt 134.7 kg
[~2019-08-26] MED LIST changes: +POLYTRIM 1000010 M1 OPH
--- NOTE | ~2019-08-26 | O ---
[place], [place] OPERATIVE NOTE NAME: LUCIA CASTREJON UNIT #: [id number] ROOM: DOCTOR: [facility] BIRTHDATE: [birth year] DOS: 08/26/2019 GASTROENDOSCOPIC REPORT INDICATIONS: This is a 63-year-old patient who has presented with chief complaint of anemia, guaiac positivity, undergoing investigation. The patient with a history of atrial fibrillation. ALLERGIES: No known medication. PAST MEDICAL HISTORY: Obesity, diabetes mellitus, hypertension, hypercholesterolemia, atrial fibrillation. FAMILY HISTORY: Noncontributory. SOCIAL HISTORY: Smoker, nonalcohol consumer. PROCEDURE: Today's procedure part of investigation is panendoscopy with colonoscopy. PREMEDICATION: Propofol. SCOPE: Olympus forward-viewing gastroscope Q10 video. REPORT: After putting the patient in left lateral position and application of lubricant to the scope, the scope was introduced. Thereafter, under direct visualization, advanced through the length of esophagus without difficulty. Small hiatal hernia noticed. Gastritis seen. Mild duodenitis noticed. Antral biopsy obtained. GI reflexion of the scope reveals cardia to be benign. Air was suctioned out. The patient was extubated, tolerated the procedure well. IMPRESSION: Gastritis, duodenitis and a small hiatal hernia. FURTHER DISCUSSION: The patient has been on Motrin 800 mg p.r.n. as well as taking prednisone 10 mg daily. She has been on the other hand on omeprazole 20 mg day. We are going to advise her to increase her omeprazole to 40 mg per day as well as intake of Gaviscon Extra Strength tablet along with the Motrin and prednisone if she has to take those. Furthermore, I am going to proceed with colonoscopy. The patient has presented with chief complaint of guaiac positivity, undergoing investigation. PROCEDURE: Today's procedure part of investigation is colonoscopy. PREMEDICATION: Propofol. SCOPE: Olympus forward-viewing colonoscope 10L video. DESCRIPTION OF PROCEDURE: After putting the patient in left lateral position [place], [place] OPERATIVE NOTE NAME: LUCIA CASTREJON UNIT #: [id number] ROOM: DOCTOR: [facility] BIRTHDATE: [birth year] and application of lubricant to the scope, the scope was introduced. Thereafter, under direct visualization, advanced through the length of colon without difficulty. Base of colon without difficulty. Colon mucosa and vascularity carefully examined. Base of the cecum explored, appendiceal site and ileocecal valve was defined. Scope was gradually withdrawn from ascending, transverse, descending colon. Diverticulosis was noticed. The patient extubated, tolerated the procedure well. IMPRESSION: Diverticulosis. PLAN: High fiber diet. ACTIVITY: Ad amish. FOLLOWUP: As outpatient. Thank you very much indeed. DONAVON MI MD CM:OPRECORD:OPERATIVE NOTE [id number] DONAVON MI MD 08/26/19 1531 interface
[2019-08-26 13:15] VITALS: BP 112/53
[2019-08-26 14:58] VITALS: BP 95/59
[2019-08-26 15:13] VITALS: BP 108/72
[2019-08-26 15:28] VITALS: BP 121/69
== END | disposition home or self-care (01) ==
LOC: SDC 08-23 08:00
DX: D64.9 Anemia, unspecified (principal); K44.9 Diaphragmatic hernia without obstruction or gangrene; E11.9 Type 2 diabetes mellitus without complications; I10 Essential (primary) hypertension; E78.00 Pure hypercholesterolemia, unspecified; I48.91 Unspecified atrial fibrillation; K29.50 Unspecified chronic gastritis without bleeding; F32.9 Major depressive disorder, single episode, unspecified; K21.9 Gastro-esophageal reflux disease without esophagitis; J44.9 Chronic obstructive pulmonary disease, unspecified; E66.9 Obesity, unspecified; Z68.42 Body mass index [BMI] 45.0-49.9, adult; Z98.890 Other specified postprocedural states; Z79.4 Long term (current) use of insulin; Z90.710 Acquired absence of both cervix and uterus; Z87.891 Personal history of nicotine dependence; Z79.899 Other long term (current) drug therapy; Z82.3 Family history of stroke

== ENCOUNTER → 2019-10-21 | Outpatient (CLI) | payer MEDICARE | END | disposition home or self-care (01) | LOC: ORTHO 01:31 | DX: M17.11 Unilateral primary osteoarthritis, right knee (principal) ==

== ENCOUNTER → 2019-11-10 | Outpatient (CLI) | payer MEDICARE ==
[2019-11-10 14:00] LABS: BASO % 0.2 % (0.0-1.0); EOS # 0.1 10*3/uL (0.0-0.4); EOS % 0.7 % (1.0-4.0); HEMATOCRIT 44.4 % (37.0-47.0); HEMOGLOBIN 12.9 g/dl (12.0-16.0); LYMPH # 3.5 10*3/uL (1.3-4.4); LYMPH % 41.4 % (27.0-41.0); MEAN CORPUSCULAR HGB 23.2 pg (27.0-31.0); MEAN CORPUSCULAR HGB CONC 29.1 g/dl (33.0-37.0); MEAN PLATELET VOLUME 10.6 fl (9.6-12.3); MONO # 0.6 10*3/uL (0.1-1.0); MONO % 7.5 % (3.0-9.0); NEUT # 4.2 10*3/uL (2.3-7.9); NEUT % 49.8 % (47.0-73.0); PLATELET COUNT AUTOMATED 254 10*3/uL (130-400); RED BLOOD COUNT 5.55 10*6/uL (4.10-5.10); RED CELL DISTRI WIDTH 14.8 % (0-14.5); WHITE BLOOD COUNT 8.4 10*3/uL (4.8-10.8)
== END | disposition home or self-care (01) ==
LOC: LAB 13:44
PROVIDERS: Internal Medicine
DX: I48.91 Unspecified atrial fibrillation (principal); D64.9 Anemia, unspecified

== ENCOUNTER → 2020-02-23 | Outpatient (CLI) | payer MEDICARE | END | disposition home or self-care (01) | LOC: COVID19 09:02 | DX: R05 Cough (principal); Z20.828 Contact with and (suspected) exposure to other viral communicable diseases ==

== ENCOUNTER → 2020-05-18 | Outpatient (CLI) | payer MEDICARE | END | disposition home or self-care (01) | LOC: US 08:05 | DX: R10.9 Unspecified abdominal pain (principal) ==

== ENCOUNTER → 2020-10-03 | Outpatient (CLI) | payer MEDICARE ==
[2020-10-03 08:57] LABS: POTASSIUM 3.6 mmol/L (3.5-5.1)
[2020-10-03 09:05] LABS: BASO % 0.3 % (0.0-1.0); EOS # 0.1 10*3/uL (0.0-0.4); EOS % 1.8 % (1.0-4.0); HEMATOCRIT 37.6 % (37.0-47.0); LYMPH # 2.8 10*3/uL (1.3-4.4); LYMPH % 37.7 % (27.0-41.0); MEAN CELL VOLUME 76.6 fl (81.0-99.0); MEAN CORPUSCULAR HGB 22.4 pg (27.0-31.0); MEAN CORPUSCULAR HGB CONC 29.3 g/dl (33.0-37.0); MEAN PLATELET VOLUME 11.7 fl (9.6-12.3); MONO # 0.5 10*3/uL (0.1-1.0); MONO % 6.9 % (3.0-9.0); NEUT # 3.9 10*3/uL (2.3-7.9); NEUT % 52.9 % (47.0-73.0); PLATELET COUNT AUTOMATED 263 10*3/uL (130-400); RED BLOOD COUNT 4.91 10*6/uL (4.10-5.10); RED CELL DISTRI WIDTH 15.9 % (0-14.5); WHITE BLOOD COUNT 7.4 10*3/uL (4.8-10.8)
[2020-10-03 09:09] LABS: ALBUMIN 2.8 gm/dl (3.1-4.5); CREATININE 1.14 mg/dL (0.55-1.02); TOTAL PROTEIN 7.1 gm/dL (6.4-8.2)
== END | disposition home or self-care (01) ==
LOC: LAB 07:54
PROVIDERS: Student in an Organized Health Care Education/Training Program; ATTEND Family Medicine
DX: E11.9 Type 2 diabetes mellitus without complications (principal); E78.49 Other hyperlipidemia; D64.9 Anemia, unspecified

== ENCOUNTER → 2021-01-17 | Outpatient (CLI) | payer MEDICARE ==
[2021-01-17 08:58] LABS: BASO % 0.5 % (0.0-1.0); EOS # 0.2 10*3/uL (0.0-0.4); EOS % 2.5 % (1.0-4.0); HEMATOCRIT 37.5 % (37.0-47.0); LYMPH # 3.5 10*3/uL (1.3-4.4); LYMPH % 42.1 % (27.0-41.0); MEAN CELL VOLUME 79.4 fl (81.0-99.0); MEAN CORPUSCULAR HGB 22.9 pg (27.0-31.0); MEAN CORPUSCULAR HGB CONC 28.8 g/dl (33.0-37.0); MEAN PLATELET VOLUME 10.4 fl (9.6-12.3); MONO # 0.5 10*3/uL (0.1-1.0); MONO % 5.5 % (3.0-9.0); NEUT % 48.9 % (47.0-73.0); PLATELET COUNT AUTOMATED 260 10*3/uL (130-400); RED BLOOD COUNT 4.72 10*6/uL (4.10-5.10); WHITE BLOOD COUNT 8.2 10*3/uL (4.8-10.8)
[2021-01-17 09:21] LABS: ALBUMIN 2.9 gm/dl (3.1-4.5); CREATININE 1.18 mg/dL (0.55-1.02); POTASSIUM 3.2 mmol/L (3.5-5.1); TOTAL PROTEIN 7.4 gm/dL (6.4-8.2)
== END | disposition home or self-care (01) ==
LOC: LAB 08:31
PROVIDERS: ATTEND Family Medicine
DX: E11.9 Type 2 diabetes mellitus without complications (principal); D50.9 Iron deficiency anemia, unspecified; E55.9 Vitamin D deficiency, unspecified; E78.5 Hyperlipidemia, unspecified

== ENCOUNTER → 2021-03-27 | Outpatient (CLI) | payer MEDICARE | END | disposition home or self-care (01) | LOC: RAD 08:43 | PROVIDERS: ATTEND Orthopaedic Surgery | DX: M17.11 Unilateral primary osteoarthritis, right knee (principal); M25.861 Other specified joint disorders, right knee; M25.761 Osteophyte, right knee ==

== ENCOUNTER → 2021-04-23 | Outpatient (CLI) | payer MEDICARE ==
[~2021-04-23] MED LIST changes: +DILTIAZEM HCL120 MG PO; +DOXEPIN HCL10 MG PO; +ELIQUIS5 M1 PO; +GLUCOPHAGE500 MG PO; +HYDROCODONE-AC1 EAC1 PO
[2021-04-23 07:56] LABS: BASO % 0.5 % (0.0-1.0); EOS # 0.3 10*3/uL (0.0-0.4); EOS % 3.7 % (1.0-4.0); HEMATOCRIT 36.4 % (37.0-47.0); LYMPH % 41.4 % (27.0-41.0); MEAN CELL VOLUME 79.3 fl (81.0-99.0); MEAN CORPUSCULAR HGB 23.1 pg (27.0-31.0); MEAN CORPUSCULAR HGB CONC 29.1 g/dl (33.0-37.0); MEAN PLATELET VOLUME 11.9 fl (9.6-12.3); MONO # 0.5 10*3/uL (0.1-1.0); MONO % 6.9 % (3.0-9.0); NEUT # 3.4 10*3/uL (2.3-7.9); NEUT % 47.2 % (47.0-73.0); PLATELET COUNT AUTOMATED 254 10*3/uL (130-400); RED BLOOD COUNT 4.59 10*6/uL (4.10-5.10); RED CELL DISTRI WIDTH 17.2 % (0-14.5); WHITE BLOOD COUNT 7.3 10*3/uL (4.8-10.8)
[2021-04-23 08:06] LABS: BILIRUBIN Negative (Negative); BLOOD 2+ (Negative); CLARITY Cloudy (Clear); COLOR Yellow (Yellow); GLUCOSE Negative (Negative); KETONE Trace (Negative); LEUKO ESTERASE Trace (Negative); NITRITE Negative (Negative)
[2021-04-23 08:16] LABS: ALBUMIN 2.9 gm/dl (3.1-4.5); CREATININE 1.17 mg/dL (0.55-1.02); POTASSIUM 3.3 mmol/L (3.5-5.1)
[2021-04-23 09:20] LABS: FERRITIN 68.1 ng/mL (10.0-291.0); PTH INTACT 80.3 pg/mL (18.5-88.0)
[2021-04-23 09:45] LABS: BACTERIA 3+; EPITHELIAL CELLS 21-30; RBC 41-50 rbc/hpf (0-2)
== END | disposition home or self-care (01) ==
LOC: LAB 07:00
PROVIDERS: ATTEND Internal Medicine Nephrology
DX: N18.31 Chronic kidney disease, stage 3a (principal); D63.1 Anemia in chronic kidney disease; N25.81 Secondary hyperparathyroidism of renal origin; Z79.899 Other long term (current) drug therapy

== ENCOUNTER 2021-06-11 01:21 | Inpatient (IN) | payer MEDICARE ==
[2021-06-07 15:13] LABS: BASO # 0.1 10*3/uL (0.0-0.1); BASO % 0.6 % (0.0-1.0); EOS # 0.2 10*3/uL (0.0-0.4); EOS % 2.7 % (1.0-4.0); HEMATOCRIT 39.7 % (37.0-47.0); LYMPH # 3.6 10*3/uL (1.3-4.4); LYMPH % 40.5 % (27.0-41.0); MEAN CELL VOLUME 76.5 fl (81.0-99.0); MEAN CORPUSCULAR HGB 22.9 pg (27.0-31.0); MEAN PLATELET VOLUME 11.2 fl (9.6-12.3); MONO # 0.6 10*3/uL (0.1-1.0); MONO % 6.2 % (3.0-9.0); NEUT # 4.4 10*3/uL (2.3-7.9); NEUT % 49.6 % (47.0-73.0); PLATELET COUNT AUTOMATED 284 10*3/uL (130-400); RED BLOOD COUNT 5.19 10*6/uL (4.10-5.10); RED CELL DISTRI WIDTH 16.6 % (0-14.5); WHITE BLOOD COUNT 8.9 10*3/uL (4.8-10.8)
[2021-06-07 15:45] LABS: BILIRUBIN Negative (Negative); BLOOD 1+ (Negative); CLARITY Clear (Clear); COLOR Yellow (Yellow); GLUCOSE Negative (Negative); KETONE Trace (Negative); LEUKO ESTERASE Trace (Negative); NITRITE Negative (Negative); PH 5.5 (4.5-8.0)
[2021-06-07 15:47] LABS: ALBUMIN 3.4 gm/dl (3.1-4.5); CREATININE 1.19 mg/dL (0.55-1.02); POTASSIUM 3.7 mmol/L (3.5-5.1); TOTAL PROTEIN 7.9 gm/dL (6.4-8.2)
[2021-06-07 15:57] LABS: BACTERIA 2+; RBC 21-30 rbc/hpf (0-2)
[~2021-06-11] VITALS: Ht 167.6 cm; Wt 138.3 kg
[2021-06-11] VITALS (9 sets, daily range): BP systolic 110–133; BP diastolic 60–85
[~2021-06-11 01:21] MED LIST changes: -DILTIAZEM HCL120 MG PO; -DOXEPIN HCL10 MG PO; -GLUCOPHAGE500 MG PO; -HYDROCODONE-AC1 EAC1 PO
[2021-06-11 15:17] LABS: ALBUMIN 2.4 gm/dl (3.1-4.5); CREATININE 1.32 mg/dL (0.55-1.02); POTASSIUM 4.2 mmol/L (3.5-5.1); TOTAL PROTEIN 7.2 gm/dL (6.4-8.2)
[2021-06-11 15:21] LABS: HEMATOCRIT 36.3 % (37.0-47.0); MEAN CELL VOLUME 77.6 fl (81.0-99.0); MEAN CORPUSCULAR HGB 22.6 pg (27.0-31.0); MEAN CORPUSCULAR HGB CONC 29.2 g/dl (33.0-37.0); MEAN PLATELET VOLUME 10.8 fl (9.6-12.3); PLATELET COUNT AUTOMATED 222 10*3/uL (130-400); RED BLOOD COUNT 4.68 10*6/uL (4.10-5.10); RED CELL DISTRI WIDTH 16.8 % (0-14.5); WHITE BLOOD COUNT 9.4 10*3/uL (4.8-10.8)
[2021-06-11 15:52] LABS: BURR CELLS FEW; PLATELET SUFFICIENCY NORMAL (NORMAL); TOTAL CELLS COUNTED 100 #CELLS
[2021-06-11] MEDS ORDERED: DOXEPIN HCL10 MG PO (20:55)
[2021-06-12] VITALS: BP 131/73
[2021-06-12] MEDS ORDERED: DILTIAZEM HCL120 MG PO (00:49)
[2021-06-12 06:32] LABS: BUN 14 mg/dl (7-24); CHLORIDE 105 mmol/L (98-107); CREATININE 1.06 mg/dL (0.55-1.02); POTASSIUM 3.7 mmol/L (3.5-5.1); SODIUM 138 mmol/L (136-145)
[2021-06-12 06:44] LABS: BASO % 0.1 % (0.0-1.0); HEMATOCRIT 34.1 % (37.0-47.0); LYMPH # 1.1 10*3/uL (1.3-4.4); MEAN CELL VOLUME 75.3 fl (81.0-99.0); MEAN CORPUSCULAR HGB CONC 30.5 g/dl (33.0-37.0); MEAN PLATELET VOLUME 11.8 fl (9.6-12.3); MONO # 0.6 10*3/uL (0.1-1.0); NEUT # 7.5 10*3/uL (2.3-7.9); NEUT % 81.4 % (47.0-73.0); PLATELET COUNT AUTOMATED 244 10*3/uL (130-400); RED BLOOD COUNT 4.53 10*6/uL (4.10-5.10); RED CELL DISTRI WIDTH 16.2 % (0-14.5); WHITE BLOOD COUNT 9.2 10*3/uL (4.8-10.8)
[2021-06-12 08:00] VITALS: BP 139/73
[2021-06-12 12:00] VITALS: BP 146/93
[2021-06-12 16:00] VITALS: BP 153/88
[2021-06-12 20:00] VITALS: BP 124/78
[2021-06-13] VITALS: BP 138/73
[2021-06-13 07:02] LABS: BASO % 0.2 % (0.0-1.0); EOS % 0.2 % (1.0-4.0); HEMATOCRIT 33.8 % (37.0-47.0); LYMPH # 2.1 10*3/uL (1.3-4.4); LYMPH % 24.4 % (27.0-41.0); MEAN CELL VOLUME 74.9 fl (81.0-99.0); MEAN CORPUSCULAR HGB 22.8 pg (27.0-31.0); MEAN CORPUSCULAR HGB CONC 30.5 g/dl (33.0-37.0); MEAN PLATELET VOLUME 11.3 fl (9.6-12.3); MONO # 0.9 10*3/uL (0.1-1.0); MONO % 10.6 % (3.0-9.0); NEUT # 5.6 10*3/uL (2.3-7.9); NEUT % 64.3 % (47.0-73.0); PLATELET COUNT AUTOMATED 213 10*3/uL (130-400); RED BLOOD COUNT 4.51 10*6/uL (4.10-5.10); RED CELL DISTRI WIDTH 16.4 % (0-14.5); WHITE BLOOD COUNT 8.7 10*3/uL (4.8-10.8)
[2021-06-13 07:22] LABS: CHLORIDE 104 mmol/L (98-107); POTASSIUM 3.8 mmol/L (3.5-5.1); SODIUM 138 mmol/L (136-145)
[2021-06-13 07:26] LABS: BUN 13 mg/dl (7-24); CREATININE 0.92 mg/dL (0.55-1.02)
[2021-06-13 08:00] VITALS: BP 145/79
[2021-06-13 12:00] VITALS: BP 132/74
[2021-06-13 16:00] VITALS: BP 130/75
[2021-06-13 20:00] VITALS: BP 135/77
[2021-06-14] VITALS: BP 115/74
[2021-06-14 06:09] LABS: BASO # 0.1 10*3/uL (0.0-0.1); BASO % 0.5 % (0.0-1.0); EOS # 0.2 10*3/uL (0.0-0.4); EOS % 1.6 % (1.0-4.0); LYMPH # 3.2 10*3/uL (1.3-4.4); LYMPH % 33.6 % (27.0-41.0); MEAN CELL VOLUME 74.1 fl (81.0-99.0); MEAN CORPUSCULAR HGB 22.7 pg (27.0-31.0); MEAN CORPUSCULAR HGB CONC 30.6 g/dl (33.0-37.0); MEAN PLATELET VOLUME 11.4 fl (9.6-12.3); MONO % 10.7 % (3.0-9.0); NEUT % 53.1 % (47.0-73.0); PLATELET COUNT AUTOMATED 230 10*3/uL (130-400); RED BLOOD COUNT 4.59 10*6/uL (4.10-5.10); RED CELL DISTRI WIDTH 16.1 % (0-14.5); WHITE BLOOD COUNT 9.5 10*3/uL (4.8-10.8)
[2021-06-14 08:00] VITALS: BP 121/75
[2021-06-14] MEDS ORDERED: HYDROCODONE-AC1 EAC1 PO (10:32)
[2021-06-14] MEDS ORDERED: GLUCOPHAGE500 MG PO (10:32)
== END 2021-06-14 13:20 | DRG 469 ==
LOC: SDC 01:21 → 4E 07:02 → SDC 07:30 → 4E 06-14 13:20
PROVIDERS: Internal Medicine; Orthopaedic Surgery; ADMIT Internal Medicine; ATTEND Internal Medicine
PROC: 0SRC0J9 Replacement of Right Knee Joint with Synthetic Substitute, Cemented, Open Approach (ICD-10-PCS; principal; 2021-06-11)
PROC: 3E0T3BZ Introduction of Anesthetic Agent into Peripheral Nerves and Plexi, Percutaneous Approach (ICD-10-PCS; 2021-06-11)
DX: M17.0 Bilateral primary osteoarthritis of knee (principal); N17.0 Acute kidney failure with tubular necrosis; E44.0 Moderate protein-calorie malnutrition; Z68.42 Body mass index [BMI] 45.0-49.9, adult; I48.0 Paroxysmal atrial fibrillation; N32.81 Overactive bladder; K21.9 Gastro-esophageal reflux disease without esophagitis; Z96.651 Presence of right artificial knee joint; Z20.822 Contact with and (suspected) exposure to COVID-19; J44.9 Chronic obstructive pulmonary disease, unspecified; E78.5 Hyperlipidemia, unspecified; E66.01 Morbid (severe) obesity due to excess calories; F17.210 Nicotine dependence, cigarettes, uncomplicated; Z71.6 Tobacco abuse counseling; N18.31 Chronic kidney disease, stage 3a; I12.9 Hypertensive chronic kidney disease with stage 1 through stage 4 chronic kidney disease, or unspecified chronic kidney disease; D50.9 Iron deficiency anemia, unspecified; E11.22 Type 2 diabetes mellitus with diabetic chronic kidney disease; E11.65 Type 2 diabetes mellitus with hyperglycemia; Z79.51 Long term (current) use of inhaled steroids; Z79.899 Other long term (current) drug therapy; Z98.51 Tubal ligation status

== ENCOUNTER → 2021-06-24 | Outpatient (CLI) | payer MEDICARE ==
[~2021-06-24] MED LIST changes: +DILTIAZEM HCL120 MG PO; +DOXEPIN HCL10 MG PO; +GLUCOPHAGE500 MG PO; +HYDROCODONE-AC1 EAC1 PO
== END | disposition home or self-care (01) ==
LOC: ORTHO 10:21
PROVIDERS: ATTEND Nurse Practitioner
DX: M17.11 Unilateral primary osteoarthritis, right knee (principal); Z96.651 Presence of right artificial knee joint

== ENCOUNTER → 2021-08-07 | Outpatient (CLI) | payer MEDICARE ==
[2021-08-07 13:58] LABS: BASO % 0.5 % (0.0-1.0); EOS # 0.1 10*3/uL (0.0-0.4); EOS % 1.8 % (1.0-4.0); HEMATOCRIT 36.9 % (37.0-47.0); LYMPH % 38.1 % (27.0-41.0); MEAN CELL VOLUME 76.9 fl (81.0-99.0); MEAN CORPUSCULAR HGB 22.9 pg (27.0-31.0); MEAN CORPUSCULAR HGB CONC 29.8 g/dl (33.0-37.0); MEAN PLATELET VOLUME 11.2 fl (9.6-12.3); MONO # 0.5 10*3/uL (0.1-1.0); NEUT # 4.2 10*3/uL (2.3-7.9); NEUT % 53.1 % (47.0-73.0); PLATELET COUNT AUTOMATED 276 10*3/uL (130-400); RED CELL DISTRI WIDTH 19.6 % (0-14.5); WHITE BLOOD COUNT 7.9 10*3/uL (4.8-10.8)
[2021-08-07 14:29] LABS: ALBUMIN 2.6 gm/dl (3.1-4.5); BUN 9 mg/dl (7-24); CHLORIDE 106 mmol/L (98-107); CREATININE 1.05 mg/dL (0.55-1.02); IRON 44 ug/dL (50-170); SODIUM 142 mmol/L (136-145); TOTAL IRON BINDING CAPACITY 263 ug/dl (250-450)
[2021-08-07 14:40] LABS: FERRITIN 114.9 ng/mL (10.0-291.0); PTH INTACT 66.3 pg/mL (18.5-88.0); VITAMIN D, 25-HYDROXY 30.2 ng/mL (30-100)
== END | disposition home or self-care (01) ==
LOC: LAB 13:17
PROVIDERS: ATTEND Internal Medicine Nephrology
DX: N18.31 Chronic kidney disease, stage 3a (principal); D63.1 Anemia in chronic kidney disease; N25.81 Secondary hyperparathyroidism of renal origin

== ENCOUNTER → 2021-08-07 | Outpatient (CLI) | payer MEDICARE | END | disposition home or self-care (01) | LOC: ORTHO 00:37 | PROVIDERS: ATTEND Orthopaedic Surgery | DX: Z47.1 Aftercare following joint replacement surgery (principal); M17.11 Unilateral primary osteoarthritis, right knee; Z96.651 Presence of right artificial knee joint ==

== ENCOUNTER → 2021-08-13 | Outpatient (CLI) | payer MEDICARE ==
[2021-08-13 16:37] LABS: BILIRUBIN Negative (Negative); BLOOD Negative (Negative); CLARITY Cloudy (Clear); COLOR Dark Yellow (Yellow); GLUCOSE Negative (Negative); KETONE Trace (Negative); LEUKO ESTERASE Trace (Negative); NITRITE Negative (Negative); SPECIFIC GRAVITY >= 1.030 (1.001-1.030)
[2021-08-13 17:06] LABS: BACTERIA 4+; EPITHELIAL CELLS 51-100
== END | disposition home or self-care (01) ==
LOC: LAB 16:03
PROVIDERS: ATTEND Internal Medicine Nephrology
DX: N18.31 Chronic kidney disease, stage 3a (principal); D63.1 Anemia in chronic kidney disease; N25.81 Secondary hyperparathyroidism of renal origin; Z79.899 Other long term (current) drug therapy

== ENCOUNTER → 2021-09-25 | Outpatient (CLI) | payer MEDICARE | END | disposition home or self-care (01) | LOC: ORTHO 00:27 | PROVIDERS: ATTEND Orthopaedic Surgery | DX: Z47.1 Aftercare following joint replacement surgery (principal); Z96.651 Presence of right artificial knee joint ==

== ENCOUNTER → 2022-01-31 | Outpatient (CLI) | payer MEDICARE | END | disposition home or self-care (01) | LOC: ORTHO 00:16 | PROVIDERS: ATTEND Orthopaedic Surgery | DX: I70.201 Unspecified atherosclerosis of native arteries of extremities, right leg (principal); Z96.651 Presence of right artificial knee joint ==

== ENCOUNTER → 2022-02-05 | Outpatient (CLI) | payer MEDICARE | END | disposition home or self-care (01) | LOC: RESCLI 00:20 | PROVIDERS: ATTEND Internal Medicine Nephrology | DX: J44.9 Chronic obstructive pulmonary disease, unspecified (principal); E55.9 Vitamin D deficiency, unspecified; I12.9 Hypertensive chronic kidney disease with stage 1 through stage 4 chronic kidney disease, or unspecified chronic kidney disease; E11.22 Type 2 diabetes mellitus with diabetic chronic kidney disease; N18.2 Chronic kidney disease, stage 2 (mild); G47.33 Obstructive sleep apnea (adult) (pediatric); E78.5 Hyperlipidemia, unspecified; I48.0 Paroxysmal atrial fibrillation; K21.9 Gastro-esophageal reflux disease without esophagitis; Z12.11 Encounter for screening for malignant neoplasm of colon; F17.210 Nicotine dependence, cigarettes, uncomplicated; Z12.31 Encounter for screening mammogram for malignant neoplasm of breast; G62.9 Polyneuropathy, unspecified; Z79.899 Other long term (current) drug therapy; Z79.84 Long term (current) use of oral hypoglycemic drugs ==

== ENCOUNTER → 2022-02-13 | Outpatient (CLI) | payer MEDICARE ==
[2022-02-13 11:57] LABS: BASO % 0.3 % (0.0-1.0); EOS # 0.2 10*3/uL (0.0-0.4); EOS % 1.8 % (1.0-4.0); HEMATOCRIT 37.9 % (37.0-47.0); LYMPH # 3.6 10*3/uL (1.3-4.4); LYMPH % 40.5 % (27.0-41.0); MEAN CELL VOLUME 79.8 fl (81.0-99.0); MEAN CORPUSCULAR HGB 23.4 pg (27.0-31.0); MEAN CORPUSCULAR HGB CONC 29.3 g/dl (33.0-37.0); MEAN PLATELET VOLUME 10.6 fl (9.6-12.3); MONO # 0.7 10*3/uL (0.1-1.0); MONO % 7.6 % (3.0-9.0); NEUT # 4.3 10*3/uL (2.3-7.9); NEUT % 49.2 % (47.0-73.0); PLATELET COUNT AUTOMATED 304 10*3/uL (130-400); RED BLOOD COUNT 4.75 10*6/uL (4.10-5.10); RED CELL DISTRI WIDTH 18.6 % (0-14.5); WHITE BLOOD COUNT 8.8 10*3/uL (4.8-10.8)
[2022-02-13 13:02] LABS: POTASSIUM 3.6 mmol/L (3.5-5.1)
[2022-02-13 13:06] LABS: VITAMIN D, 25-HYDROXY 26.6 ng/mL (30-100)
[2022-02-13 13:07] LABS: CREATININE 1.3 mg/dL (0.55-1.02); FERRITIN 122.4 ng/mL (10.0-291.0)
== END | disposition home or self-care (01) ==
LOC: LAB 10:51 → MAMMO 11:00
PROVIDERS: Internal Medicine Nephrology; ATTEND Hospitalist
DX: Z12.31 Encounter for screening mammogram for malignant neoplasm of breast (principal); N18.31 Chronic kidney disease, stage 3a; D63.1 Anemia in chronic kidney disease; N25.81 Secondary hyperparathyroidism of renal origin

== ENCOUNTER → 2022-02-15 | Outpatient (CLI) | payer MEDICARE ==
[2022-02-15 09:04] LABS: BILIRUBIN Negative (Negative); BLOOD 1+ (Negative); CLARITY Cloudy (Clear); COLOR Yellow (Yellow); GLUCOSE Negative (Negative); KETONE Negative (Negative); LEUKO ESTERASE 1+ (Negative); NITRITE Negative (Negative); UROBILINOGEN 0.2 E.U./dl (0.0-1.0)
[2022-02-15 09:21] LABS: BACTERIA 3+
== END | disposition home or self-care (01) ==
LOC: LAB 08:21
PROVIDERS: ATTEND Internal Medicine Nephrology
DX: N18.31 Chronic kidney disease, stage 3a (principal); N25.81 Secondary hyperparathyroidism of renal origin; D63.1 Anemia in chronic kidney disease; Z79.899 Other long term (current) drug therapy

== ENCOUNTER → 2022-04-09 | Outpatient (CLI) | payer MEDICARE | END | disposition home or self-care (01) | LOC: RESCLI 02:28 | PROVIDERS: ATTEND Internal Medicine Nephrology | DX: I12.9 Hypertensive chronic kidney disease with stage 1 through stage 4 chronic kidney disease, or unspecified chronic kidney disease (principal); E11.22 Type 2 diabetes mellitus with diabetic chronic kidney disease; N18.2 Chronic kidney disease, stage 2 (mild); R06.00 Dyspnea, unspecified; K58.9 Irritable bowel syndrome, unspecified; E78.00 Pure hypercholesterolemia, unspecified; J45.909 Unspecified asthma, uncomplicated; J44.9 Chronic obstructive pulmonary disease, unspecified; M06.9 Rheumatoid arthritis, unspecified; Z87.891 Personal history of nicotine dependence; E55.9 Vitamin D deficiency, unspecified; G47.33 Obstructive sleep apnea (adult) (pediatric); E78.5 Hyperlipidemia, unspecified; I48.0 Paroxysmal atrial fibrillation; K21.9 Gastro-esophageal reflux disease without esophagitis; Z12.31 Encounter for screening mammogram for malignant neoplasm of breast; Z12.11 Encounter for screening for malignant neoplasm of colon; G62.9 Polyneuropathy, unspecified; J30.2 Other seasonal allergic rhinitis; Z79.899 Other long term (current) drug therapy; Z79.01 Long term (current) use of anticoagulants ==

== ENCOUNTER → 2022-04-28 | Day surgery (SDC) | payer MEDICARE ==
[~2022-04-28] VITALS: Ht 167.6 cm; Wt 142.4 kg
[~2022-04-28] MED LIST changes: +ATORVASTATIN CA20 M1 PO; +CARAFATE1 G1 PO; +FEROSUL325 M1 PO
[2022-04-28 08:20] VITALS: BP 120/74
[2022-04-28 09:33] VITALS: BP 82/44
[2022-04-28 09:48] VITALS: BP 91/44
[2022-04-28 10:03] VITALS: BP 113/64
== END | disposition home or self-care (01) ==
LOC: SDC 04-24 13:15
PROVIDERS: ATTEND Surgery
DX: Z12.11 Encounter for screening for malignant neoplasm of colon (principal); K57.30 Diverticulosis of large intestine without perforation or abscess without bleeding; K29.50 Unspecified chronic gastritis without bleeding; K21.9 Gastro-esophageal reflux disease without esophagitis; J44.9 Chronic obstructive pulmonary disease, unspecified; I12.9 Hypertensive chronic kidney disease with stage 1 through stage 4 chronic kidney disease, or unspecified chronic kidney disease; N18.30 Chronic kidney disease, stage 3 unspecified; E11.22 Type 2 diabetes mellitus with diabetic chronic kidney disease; K58.9 Irritable bowel syndrome, unspecified; M79.7 Fibromyalgia; E78.5 Hyperlipidemia, unspecified; M19.90 Unspecified osteoarthritis, unspecified site; I48.91 Unspecified atrial fibrillation; Z87.891 Personal history of nicotine dependence; Z79.899 Other long term (current) drug therapy
CPT/HCPCS: 00813; 43239; G0121

== ENCOUNTER → 2022-05-12 | Outpatient (CLI) | payer MEDICARE ==
[~2022-05-12] MED LIST changes: -OMEPRAZOLE20 M2 PO; +PRILOSEC20 M1 PO
== END | disposition home or self-care (01) ==
LOC: CARD 03:17
PROVIDERS: ATTEND Internal Medicine
DX: R06.02 Shortness of breath (principal); R06.00 Dyspnea, unspecified

== ENCOUNTER → 2022-07-02 | Outpatient (CLI) | payer MEDICARE ==
[2022-07-02 10:40] LABS: BASO % 0.3 % (0.0-1.0); EOS # 0.1 10*3/uL (0.0-0.4); EOS % 1.6 % (1.0-4.0); HEMATOCRIT 37.7 % (37.0-47.0); LYMPH # 2.8 10*3/uL (1.3-4.4); LYMPH % 41.1 % (27.0-41.0); MEAN CELL VOLUME 81.3 fl (81.0-99.0); MEAN CORPUSCULAR HGB 23.7 pg (27.0-31.0); MEAN CORPUSCULAR HGB CONC 29.2 g/dl (33.0-37.0); MEAN PLATELET VOLUME 10.5 fl (9.6-12.3); MONO # 0.5 10*3/uL (0.1-1.0); MONO % 7.7 % (3.0-9.0); NEUT # 3.3 10*3/uL (2.3-7.9); NEUT % 48.9 % (47.0-73.0); PLATELET COUNT AUTOMATED 239 10*3/uL (130-400); RED BLOOD COUNT 4.64 10*6/uL (4.10-5.10); RED CELL DISTRI WIDTH 16.1 % (0-14.5); WHITE BLOOD COUNT 6.8 10*3/uL (4.8-10.8)
[2022-07-02 11:05] LABS: CREATININE 1.41 mg/dL (0.55-1.02); POTASSIUM 3.9 mmol/L (3.5-5.1); TOTAL PROTEIN 7.6 gm/dL (6.4-8.2)
== END | disposition home or self-care (01) ==
LOC: RESCLI 02:38
PROVIDERS: Student in an Organized Health Care Education/Training Program; ATTEND Orthopaedic Surgery
DX: E11.22 Type 2 diabetes mellitus with diabetic chronic kidney disease (principal); I12.9 Hypertensive chronic kidney disease with stage 1 through stage 4 chronic kidney disease, or unspecified chronic kidney disease; Z79.899 Other long term (current) drug therapy; G62.9 Polyneuropathy, unspecified; J44.9 Chronic obstructive pulmonary disease, unspecified; E66.01 Morbid (severe) obesity due to excess calories; E55.9 Vitamin D deficiency, unspecified; E78.5 Hyperlipidemia, unspecified; G47.33 Obstructive sleep apnea (adult) (pediatric); I48.0 Paroxysmal atrial fibrillation; J30.2 Other seasonal allergic rhinitis; K21.9 Gastro-esophageal reflux disease without esophagitis; N18.2 Chronic kidney disease, stage 2 (mild); Z47.1 Aftercare following joint replacement surgery; Z96.651 Presence of right artificial knee joint; D63.1 Anemia in chronic kidney disease; M76.51 Patellar tendinitis, right knee; R06.02 Shortness of breath; Z87.891 Personal history of nicotine dependence; Z98.890 Other specified postprocedural states; Z79.84 Long term (current) use of oral hypoglycemic drugs

== ENCOUNTER → 2022-10-10 | Outpatient (CLI) | payer MEDICARE | END | disposition home or self-care (01) | LOC: ORTHO 04:21 | PROVIDERS: ATTEND Orthopaedic Surgery | DX: M25.511 Pain in right shoulder (principal) ==

== ENCOUNTER → 2022-12-01 | Outpatient (CLI) | payer MEDICARE | END | disposition home or self-care (01) | LOC: RAD 11-14 09:00 | PROVIDERS: ATTEND Family Medicine | DX: Z13.820 Encounter for screening for osteoporosis (principal); M81.0 Age-related osteoporosis without current pathological fracture; Z78.0 Asymptomatic menopausal state ==

== ENCOUNTER → 2023-05-06 | Outpatient (CLI) | payer MEDICARE ==
[2023-05-06 10:32] LABS: BASO % 0.4 % (0.0-1.0); EOS # 0.2 10*3/uL (0.0-0.4); EOS % 2.5 % (1.0-4.0); LYMPH # 2.3 10*3/uL (1.3-4.4); MEAN CELL VOLUME 81.1 fl (81.0-99.0); MEAN CORPUSCULAR HGB 23.2 pg (27.0-31.0); MEAN CORPUSCULAR HGB CONC 28.6 g/dl (33.0-37.0); MEAN PLATELET VOLUME 11.6 fl (9.6-12.3); MONO # 0.4 10*3/uL (0.1-1.0); MONO % 6.1 % (3.0-9.0); NEUT # 3.8 10*3/uL (2.3-7.9); NEUT % 56.6 % (47.0-73.0); PLATELET COUNT AUTOMATED 252 10*3/uL (130-400); RED BLOOD COUNT 4.44 10*6/uL (4.10-5.10); RED CELL DISTRI WIDTH 17.6 % (0-14.5); WHITE BLOOD COUNT 6.8 10*3/uL (4.8-10.8)
[2023-05-06 10:55] LABS: POTASSIUM 3.6 mmol/L (3.4-5.1)
[2023-05-06 10:59] LABS: POTASSIUM 3.7 mmol/L (3.4-5.1); TOTAL PROTEIN 7.6 gm/dL (6.0-8.0)
[2023-05-06 11:27] LABS: VITAMIN D, 25-HYDROXY 47.4 ng/mL (30-100)
== END | disposition home or self-care (01) ==
LOC: LAB 09:22
PROVIDERS: Student in an Organized Health Care Education/Training Program; ATTEND Internal Medicine Nephrology
DX: E11.9 Type 2 diabetes mellitus without complications (principal); N25.81 Secondary hyperparathyroidism of renal origin; R60.0 Localized edema; E66.01 Morbid (severe) obesity due to excess calories; D63.1 Anemia in chronic kidney disease; R06.02 Shortness of breath; E55.9 Vitamin D deficiency, unspecified

== ENCOUNTER → 2023-06-08 | Outpatient (CLI) | payer MEDICARE | END | disposition home or self-care (01) | LOC: CARD 09:55 | PROVIDERS: ATTEND Internal Medicine Cardiovascular Disease | DX: I50.33 Acute on chronic diastolic (congestive) heart failure (principal); I31.39 Other pericardial effusion (noninflammatory); R60.0 Localized edema ==

== ENCOUNTER → 2023-06-29 | Outpatient (CLI) | payer MEDICARE | END | disposition home or self-care (01) | LOC: ORTHO 11:02 | PROVIDERS: ATTEND Orthopaedic Surgery | DX: I70.201 Unspecified atherosclerosis of native arteries of extremities, right leg (principal); Z96.651 Presence of right artificial knee joint ==

== ENCOUNTER → 2023-08-05 | Outpatient (CLI) | payer MEDICARE ==
[2023-08-05 09:38] LABS: BASO % 0.3 % (0.0-1.0); EOS # 0.2 10*3/uL (0.0-0.4); EOS % 2.2 % (1.0-4.0); HEMATOCRIT 34.8 % (37.0-47.0); LYMPH # 2.7 10*3/uL (1.3-4.4); LYMPH % 38.9 % (27.0-41.0); MEAN CELL VOLUME 81.3 fl (81.0-99.0); MEAN CORPUSCULAR HGB 22.9 pg (27.0-31.0); MEAN CORPUSCULAR HGB CONC 28.2 g/dl (33.0-37.0); MEAN PLATELET VOLUME 11.2 fl (9.6-12.3); MONO # 0.4 10*3/uL (0.1-1.0); MONO % 6.2 % (3.0-9.0); NEUT # 3.6 10*3/uL (2.3-7.9); PLATELET COUNT AUTOMATED 250 10*3/uL (130-400); RED BLOOD COUNT 4.28 10*6/uL (4.10-5.10); RED CELL DISTRI WIDTH 17.2 % (0-14.5); WHITE BLOOD COUNT 6.9 10*3/uL (4.8-10.8)
== END | disposition home or self-care (01) ==
LOC: LAB 08:55
PROVIDERS: ATTEND Student in an Organized Health Care Education/Training Program
DX: E11.9 Type 2 diabetes mellitus without complications (principal); I10 Essential (primary) hypertension; D63.8 Anemia in other chronic diseases classified elsewhere

== ENCOUNTER → 2023-11-11 | Outpatient (CLI) | payer MEDICARE | END | disposition home or self-care (01) | LOC: ORTHO 01:02 | PROVIDERS: ATTEND Orthopaedic Surgery | DX: M17.12 Unilateral primary osteoarthritis, left knee (principal) ==

== ENCOUNTER → 2023-11-17 | Outpatient (CLI) | payer MEDICARE | END | disposition home or self-care (01) | LOC: CT 03:30 | PROVIDERS: ATTEND Orthopaedic Surgery | DX: S83.192A Other subluxation of left knee, initial encounter (principal); M17.12 Unilateral primary osteoarthritis, left knee; I70.202 Unspecified atherosclerosis of native arteries of extremities, left leg; M25.862 Other specified joint disorders, left knee; M25.762 Osteophyte, left knee; M76.9 Unspecified enthesopathy, lower limb, excluding foot; X58.XXXA Exposure to other specified factors, initial encounter; Y93.89 Activity, other specified; Y92.89 Other specified places as the place of occurrence of the external cause; Y99.8 Other external cause status ==

== ENCOUNTER → 2023-11-27 | Outpatient (CLI) | payer MEDICARE ==
[2023-11-27 11:17] LABS: URINE CREATININE RANDOM 186.46 mg/dL
== END | disposition home or self-care (01) ==
LOC: LAB 09:35
PROVIDERS: Student in an Organized Health Care Education/Training Program; ATTEND Family Medicine
DX: N18.31 Chronic kidney disease, stage 3a (principal); D63.1 Anemia in chronic kidney disease

== ENCOUNTER → 2023-12-22 | Outpatient (CLI) | payer MEDICARE | END | disposition home or self-care (01) | LOC: US 12-08 10:30 | PROVIDERS: ATTEND Family Medicine | DX: N18.31 Chronic kidney disease, stage 3a (principal) ==

== ENCOUNTER → 2024-01-05 | Outpatient (CLI) | payer MEDICARE ==
[2024-01-05 10:53] LABS: BASO % 0.4 % (0.0-1.0); EOS # 0.1 10*3/uL (0.0-0.4); EOS % 1.6 % (1.0-4.0); HEMATOCRIT 36.9 % (37.0-47.0); LYMPH # 2.6 10*3/uL (1.3-4.4); LYMPH % 38.5 % (27.0-41.0); MEAN CORPUSCULAR HGB 22.6 pg (27.0-31.0); MEAN CORPUSCULAR HGB CONC 28.2 g/dl (33.0-37.0); MEAN PLATELET VOLUME 11.3 fl (9.6-12.3); MONO # 0.5 10*3/uL (0.1-1.0); NEUT # 3.5 10*3/uL (2.3-7.9); NEUT % 52.2 % (47.0-73.0); PLATELET COUNT AUTOMATED 229 10*3/uL (130-400); RED BLOOD COUNT 4.61 10*6/uL (4.10-5.10); RED CELL DISTRI WIDTH 17.1 % (0-14.5); WHITE BLOOD COUNT 6.7 10*3/uL (4.8-10.8)
[2024-01-05 10:59] LABS: BILIRUBIN Negative (Negative); BLOOD Negative (Negative); CLARITY Cloudy (Clear); COLOR Yellow (Yellow); GLUCOSE Negative (Negative); KETONE Trace (Negative); LEUKO ESTERASE Negative (Negative); NITRITE Negative (Negative); UROBILINOGEN 0.2 E.U./dl (0.0-1.0)
== END | disposition home or self-care (01) ==
LOC: LAB 10:20
PROVIDERS: ATTEND Nurse Practitioner Family
DX: N25.81 Secondary hyperparathyroidism of renal origin (principal); N18.30 Chronic kidney disease, stage 3 unspecified; D63.1 Anemia in chronic kidney disease; Z79.899 Other long term (current) drug therapy

== ENCOUNTER → 2024-03-28 | Outpatient (CLI) | payer MEDICARE ==
[~2024-03-28] MED LIST changes: +MAGNESIUM OXID500 MG PO; +PERCOCET 5-3251 EACH PO; +TRULICITY3 MG/0.5 M SQ
== END | disposition home or self-care (01) ==
LOC: ORTHO 01:17
PROVIDERS: ATTEND Orthopaedic Surgery
DX: Z47.1 Aftercare following joint replacement surgery (principal)

== ENCOUNTER → 2024-04-25 | Outpatient (CLI) | payer MEDICARE | END | disposition home or self-care (01) | LOC: ORTHO 01:11 | PROVIDERS: ATTEND Orthopaedic Surgery | DX: Z47.1 Aftercare following joint replacement surgery (principal); Z96.652 Presence of left artificial knee joint ==

== ENCOUNTER → 2024-06-06 | Outpatient (CLI) | payer MEDICARE | END | disposition home or self-care (01) | LOC: ORTHO 00:23 | PROVIDERS: ATTEND Orthopaedic Surgery | DX: Z47.1 Aftercare following joint replacement surgery (principal) ==

== ENCOUNTER → 2024-07-20 | Outpatient (CLI) | payer MEDICARE ==
[2024-07-20 12:45] LABS: BASO % 0.4 % (0.0-1.0); EOS # 0.1 10*3/uL (0.0-0.4); EOS % 1.6 % (1.0-4.0); HEMATOCRIT 36.6 % (37.0-47.0); LYMPH # 2.8 10*3/uL (1.3-4.4); LYMPH % 40.6 % (27.0-41.0); MEAN CELL VOLUME 80.3 fl (81.0-99.0); MEAN CORPUSCULAR HGB 22.8 pg (27.0-31.0); MEAN CORPUSCULAR HGB CONC 28.4 g/dl (33.0-37.0); MEAN PLATELET VOLUME 10.5 fl (9.6-12.3); MONO # 0.5 10*3/uL (0.1-1.0); MONO % 7.8 % (3.0-9.0); NEUT # 3.4 10*3/uL (2.3-7.9); NEUT % 49.2 % (47.0-73.0); PLATELET COUNT AUTOMATED 246 10*3/uL (130-400); RED BLOOD COUNT 4.56 10*6/uL (4.10-5.10); RED CELL DISTRI WIDTH 16.4 % (0-14.5); WHITE BLOOD COUNT 6.8 10*3/uL (4.8-10.8)
[2024-07-20 13:13] LABS: POTASSIUM 3.9 mmol/L (3.4-5.1)
[2024-07-20 13:19] LABS: VITAMIN D, 25-HYDROXY 39.2 ng/mL (30-100)
[2024-07-20 13:24] LABS: BILIRUBIN Negative (Negative); BLOOD 2+ (Negative); CLARITY Cloudy (Clear); COLOR Yellow (Yellow); GLUCOSE Negative (Negative); KETONE Negative (Negative); LEUKO ESTERASE 1+ (Negative); NITRITE Negative (Negative); PH 6.5 (4.5-8.0); SPECIFIC GRAVITY 1.015 (1.001-1.030); UROBILINOGEN 0.2 E.U./dl (0.0-1.0)
[2024-07-20 13:29] LABS: URINE CREATININE RANDOM 156.17 mg/dL
[2024-07-20 13:33] LABS: BACTERIA TRACE; EPITHELIAL CELLS TNTC
== END | disposition home or self-care (01) ==
LOC: LAB 12:12
PROVIDERS: ATTEND Nurse Practitioner Family
DX: N18.30 Chronic kidney disease, stage 3 unspecified (principal); E55.9 Vitamin D deficiency, unspecified; N25.81 Secondary hyperparathyroidism of renal origin; D63.1 Anemia in chronic kidney disease; Z79.899 Other long term (current) drug therapy

== ENCOUNTER → 2024-09-05 | Outpatient (CLI) | payer MEDICARE | END | disposition home or self-care (01) | LOC: ORTHO 00:24 | PROVIDERS: ATTEND Orthopaedic Surgery | DX: M25.462 Effusion, left knee (principal); Z96.659 Presence of unspecified artificial knee joint ==

== ENCOUNTER → 2025-03-13 | Outpatient (CLI) | payer MEDICARE | END | disposition home or self-care (01) | LOC: ORTHO 02:35 | PROVIDERS: ATTEND Orthopaedic Surgery | DX: Z47.1 Aftercare following joint replacement surgery (principal); Z96.652 Presence of left artificial knee joint ==

== ENCOUNTER → 2025-04-06 | Outpatient (CLI) | payer MEDICARE | END | disposition home or self-care (01) | LOC: RAD 10:20 | PROVIDERS: ATTEND Family Medicine | DX: M19.012 Primary osteoarthritis, left shoulder (principal); M25.512 Pain in left shoulder ==

== ENCOUNTER → 2025-09-30 | Outpatient (CLI) | payer MEDICARE ==
[2025-09-30 09:11] LABS: BASO # 0.0 10*3/uL (0.0-0.1); BASO % 0.4 % (0.0-1.0); EOS # 0.2 10*3/uL (0.0-0.4); EOS % 2.7 % (1.0-4.0); MEAN CELL VOLUME 79.2 fl (81.0-99.0); MEAN CORPUSCULAR HGB 22.8 pg (27.0-31.0); MEAN PLATELET VOLUME 10.7 fl (9.6-12.3); MONO # 0.5 10*3/uL (0.1-1.0); MONO % 6.6 % (3.0-9.0); NEUT # 3.2 10*3/uL (2.3-7.9); NEUT % 46.2 % (47.0-73.0); NUCLEATED RED BLOOD CELL 0.0 % (0.0-0.0); NUCLEATED RED BLOOD CELL 0.0 10*3/uL (0.0-0.0); PLATELET COUNT AUTOMATED 266 10*3/uL (130-400); RED CELL DISTRI WIDTH 17.3 % (0-14.5)
[2025-09-30 09:32] LABS: BUN 12.0 mg/dl (9-23)
[2025-09-30 09:34] LABS: LDL CHOLESTEROL 134 mg/dL (9-159)
[2025-09-30 10:32] LABS: VITAMIN D, 25-HYDROXY 49.1 ng/mL (30-100)
[2025-09-30 11:18] LABS: BILIRUBIN Negative (Negative); BLOOD 1+ (Negative); CLARITY Cloudy (Clear); COLOR Yellow (Yellow); KETONE Negative (Negative); LEUKO ESTERASE Trace (Negative); NITRITE Negative (Negative); PH 5.5 (4.5-8.0); SPECIFIC GRAVITY 1.020 (1.001-1.030); UROBILINOGEN 1.0 E.U./dl (0.0-1.0)
[2025-09-30 12:20] LABS: BACTERIA 3+; EPITHELIAL CELLS 21-30; RBC 16-20 rbc/hpf (0-2)
== END | disposition home or self-care (01) ==
LOC: LAB 08:41
PROVIDERS: ATTEND Nurse Practitioner Family
DX: N18.30 Chronic kidney disease, stage 3 unspecified (principal); E55.9 Vitamin D deficiency, unspecified; N25.81 Secondary hyperparathyroidism of renal origin; D63.1 Anemia in chronic kidney disease; E78.2 Mixed hyperlipidemia; Z79.899 Other long term (current) drug therapy